=== PATIENT | male | born 1945 | race Caucasian/White ===

== ENCOUNTER 2020-08-03 17:34 | Inpatient (IN) ==
--- NOTE | 2020-08-03 18:14 | ERNOTE ---
Medical Problem HPI - Narrative Date of Service: 08/03/20 - General Chief Complaint: General Assessment Time Seen by Provider: 08/03/20 17:39 Source: patient Exam Limitations: no limitations - Immun/Allergies/Home Medications Immunizations: IMMUNIZATION HX Immunizations Up to Date Yes History of Influenza Vaccine More Information Required Hx Pneumococcal Vaccination More Information Required Allergies/Adverse Reactions: Allergies No Known Allergies Allergy (Verified 08/03/20 17:35) Home Medications: HOME MEDICATIONS aspirin 325 mg tablet 325 mg PO DAILY 11/19/17 [Last Taken Unknown] losartan 25 mg tablet 12.5 mg PO DAILY #45 tab 08/11/19 [Last Taken Unknown] atorvastatin 40 mg tablet 40 mg PO DAILY 11/30/19 [Last Taken Unknown] carvedilol 6.25 mg tablet 12.5 mg PO BID tab 11/30/19 [Last Taken Unknown] insulin glargine 100 unit/mL (3 mL) subcutaneous pen 18 unit SUB-Q DAILY #15 ml 05/01/20 [Last Taken Unknown] ropinirole 2 mg tablet See Rx Instructions PO HS #360 tab 05/01/20 [Last Taken Unknown] torsemide 100 mg tablet 200 mg PO BID tab 07/09/20 [Last Taken Unknown] dapagliflozin 10 mg tablet 10 mg PO DAILY #90 tab 07/23/20 [Last Taken Unknown] metolazone 2.5 mg tablet 5 mg PO Q OTHER DAY #0.1 tab 07/23/20 [Last Taken Unknown] varenicline 0.5 mg (11)-1 mg (42) tablets in a dose pack See Rx Instructions PO PER PKG DIR #53 tab 07/23/20 [Last Taken Unknown] varenicline 1 mg tablet 1 mg PO BID #56 tab 07/23/20 [Last Taken Unknown] pen needle, diabetic 31 gauge x /16" See Rx Instructions .ROUTE .COMPLEX #300 ea 07/27/20 [Last Taken Unknown] warfarin 5 mg tablet 5 mg PO DAILY #30 tab 07/30/20 [Last Taken Unknown] potassium chloride 10 mEq tablet,extended release(part/cryst) 20 meq PO TID #0.1 tab 07/31/20 [Last Taken Unknown] Spironolactone [Aldactone] 25 mg PO DAILY 08/03/20 [Last Taken Unknown] - History of Present History Narrative: This patient is a 75-year-old gentleman who is here complaining of shortness of breath. He has been short of breath for 8 or 9 months. He said that he got pretty swollen in the past. He has been seeing Dr. Osborne and has been put on diuretics. The swelling is improved. He reports that he has been worse the past couple weeks. His symptoms have been persistent. He has not had a fever. He has a cough. He is a smoker. He denies chest pain. He has had his aortic valve replaced. That was at [facility] about 3 years ago. He also had a defibrillator implanted at that time. He indicates his had a heart attack but has not had stents or bypass. Our records indicate dilated cardiomyopathy and pulmonary hypertension. His would like him admitted to the hospital. Review of Systems - Review of Systems Constitutional: Absent: fever EYE: Absent: vision changes ENT: Absent: ear pain, nose congestion, nasal drainage, sore throat Respiratory: Present: shortness of breath, cough Cardiology: Present: syncope - He had a fall on Thursday. He may have just lost his balance.. Absent: chest pain, palpitations Gastrointestinal/Abdominal: Absent: nausea, vomiting, diarrhea, constipation, abdominal pain Genitourinary: Absent: frequency, pain, dysuria Musculoskeletal: Present: no symptoms reported Skin: Present: no symptoms reported Neurological: Present: dizziness/light-headedness - See syncope entry above.. Absent: headache Endocrine: Present: other - He is diabetic. Hematologic/Lymphatic: Present: other - He is on warfarin. Psych: Present: no symptoms reported Medical History (Last Reviewed 08/03/20 @ 18:11 by Dameon Medrano MD) Tobacco abuse (Chronic) Onset Date: ~07/17/16 Pacemaker (Chronic) Onset Date: ~05/26/15 Heart murmur (Chronic) Onset Date: ~10/23/17 Dilated cardiomyopathy (Chronic) Onset Date: Unknown COPD (chronic obstructive pulmonary disease) (Chronic) Onset Date: ~10/23/17 Aortic stenosis (Chronic) Onset Date: Unknown Surgical History: Surgical History (Last Reviewed 08/03/20 @ 18:11 by Dameon Medrano MD) ICD (implantable cardioverter-defibrillator) in place (Chronic) Onset Date: ~05/2015 Family History: Family History (Last Reviewed 08/03/20 @ 18:11 by Dameon Medrano MD) Father H/O heart bypass surgery Heart disease Diabetes Mother Cancer Social History: (Last Reviewed 08/03/20 @ 18:11 by Dameon Medrano MD) Social History: fpc: No Marital status: lives independently: Yes household members: spouse Highest level of school completed/degree received: high school graduate Service: Yes Tobacco: Smoking Status: Current every day smoker tobacco type: cigarettes Smoking cigarettes per day: 20.0 Smoking packs per day: 1 Alcohol: alcohol intake: current Alcohol type: beer alcohol intake frequency: 3 or more drinks per day details: 5-6 drinks at a time Substance Use: substance use type: does not use Dietary Habits: caffeine: Yes Physical Exam - Physical Exam General Appearance: Present: wd/wn, alert, no apparent distress Head Exam: Present: normal inspection, no evidence of injury Eye Exam: Normal inspection: bilateral Ears, Nose, Throat: Present: normal ENT inspection Neck: Present: normal inspection, supple. Absent: lymphadenopathy (R), lymphadenopathy (L) Respiratory: Present: no respiratory distress, no accessory muscle use, other - No breath sounds noted on the left side. Cardiovascular/Chest: Present: no murmur, irregularly irregular Gastrointestinal/Abdominal: Present: normal bowel sounds, nontender, nondistended, soft, no organomegaly Back Exam: Present: normal inspection Extremity Exam: Present: other - His skin is ready. There is trace of edema on the left. Neurological Exam: Present: alert, oriented, normal mood/affect Skin Exam: Present: normal color, warm/dry Progress - Vital Signs Patient's Vital Signs:: I have reviewed the patient's vital signs. Vital Signs: Vital Signs 08/03/20 17:34 Temperature 35.6 C L Pulse Rate 84 Respiratory Rate 16 Blood Pressure 92/74 O2 Sat by Pulse Oximetry 94 - EKG EKG #1 EKG read: Interp. by me EKG Comments: 18: 17 Atrial fibrillation with RVR Rate [address]/T wave changes in the I and aVL. No old EKG available for comparison. - Progress/Reassessment Chief Complaint: General Assessment Departure Clinical Impression: Renal failure, CHF (congestive heart failure), Atrial fibrillation, Hyperkalemia - Departure Disposition: Still a patient Condition: Fair Referrals: Jayy Campos MD [Primary Care Provider] -
[2020-08-03 18:17] LABS: Hemoglobin 16.3 gm/dL (13.5-18.0); Mean Cell Volume 99.4 fl (78-100); Mean Corpuscular Hemoglobin 32.4 pg (27-31); Mean Corpuscular Hgb Conc 32.6 g/dl (32-36); Mean Platelet Volume 9.5 fl (8-11.3); Neutrophil # 5.7 K/mm3 (1.3-6.0); Neutrophil % 79.6 % (42-75.0); Platelet Count 132 K/mm3 (150-450); Red Blood Count 5.03 M/mm3 (4.7-6.0); Red Cell Distribution Width 13.1 % (11.5-14.0); White Blood Count 7.1 K/mm3 (4.0-10.5)
[2020-08-03 18:26] LABS: Prothrombin Time (Patient) 15.6 Seconds (9.1-10.7)
[2020-08-03 18:28] LABS: INR 1.53 INR (0.92-1.08)
[2020-08-03 18:38] LABS: Albumin * 3.4 gm/dl (3.4-5.0); Anion Gap 12.5 mmol/L (6.8-13.8); BUN/Creatinine Ratio 53.2 (9.0-21.6); Bilirubin, Total 0.8 mg/dL (0.0-1.1); Calcium * 8.8 mg/dL (7.9-10.9); Carbon Dioxide 30.6 mmol/L (24-32.6); Potassium 5.1 mmol/L (3.4-4.6); Total Protein 6.7 gm/dL (6.2-8.2)
[2020-08-03 18:41] LABS: Troponin I 0.049 ng/mL (0.00-0.10)
[2020-08-03] MEDS ORDERED: NORMAL SALINE 1,000 ML IV ONE (19:23)
[2020-08-03] MEDS ORDERED: NORMAL SALINE 1,000 ML IV PRN (19:54)
[2020-08-03] MEDS ORDERED: NON-FORMULARY 1 DOSE DOSE PO SCH (20:00)
[2020-08-03] MEDS ORDERED: CARVEDILOL 25 MG TABLET PO SCH (20:45)
[2020-08-03] MEDS ORDERED: NORMAL SALINE 500 ML IV ONE (21:39)
[2020-08-03] MEDS ORDERED: ACETAMINOPHEN 500 MG TABLET PO PRN (22:27)
[2020-08-03] MEDS ORDERED: INSULIN GLARGINE,HUM.REC.ANLOG 100 UNITS/ML VIAL SC ONE (23:26)
[2020-08-03] MEDS: INSULIN GLARGINE,HUM.REC.ANLOG 100 UNITS/ML VIAL SC SCH (23:29)
[2020-08-03] MEDS: rOPINIRole HCL 1 MG TABLET PO SCH (23:33)
[2020-08-04] MEDS: rOPINIRole HCL 1 MG TABLET PO SCH ×3 (08:02→20:16)
[2020-08-04] MEDS: ASPIRIN 325 MG TABLET.DR PO SCH (08:02)
[2020-08-04] MEDS: ROSUVASTATIN CALCIUM 20 MG TABLET PO SCH (08:02)
[2020-08-04] MEDS: CARVEDILOL 12.5 MG TABLET PO SCH ×2 (08:02→20:16)
[2020-08-04] MEDS: PANTOPRAZOLE SODIUM 20 MG TABLET.DR PO SCH ×2 (08:02→20:16)
[2020-08-04] MEDS: INSULIN GLARGINE,HUM.REC.ANLOG 100 UNITS/ML VIAL SC SCH (08:03)
[2020-08-04] MEDS: WARFARIN SODIUM 5 MG TABLET PO SCH (08:03)
[2020-08-04] MEDS: Dapagliflozin Propanediol [Farxiga] 10 mg tablet PO SCH (08:03)
--- NOTE | 2020-08-04 10:49 | HP ---
Chief Complaint - Chief Complaint Date of Service: 08/04/20 Time of Service: 10:07 Chief Complaint: I have Shortness of breath and weakness for several weeks. 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 However the patient is critically ill with a diagnosis of decompensated CHF, CLAUS on CKD, and refractory hypotension. The patient reports a long cardiac history that started with an VA in 2004 which led to progressive CHF. He had a defibrillator installed several years later after being diagnosed with atrial fibrillation. The patient has dilated cardiomyopathy which most likely contributes to his CHF. He also has a long history of CKD and shows a significant worsening in renal function most likely due to his weakened heart. He tells me that he has been struggling with progressive dyspnea with minimal exertion which has made daily life difficult, in an effort to improve this he has been treated with daily oral diuretics however his condition did not get better. The patient reports growing weaker and weaker which has kept him from carrying out activities of daily living, so his became concerned and had him escorted to the ER. Once in the ER the patient was discovered to have a BNP above 18,000 which is a significant worsening for him compared to his previous. He was also found to have a profound decrease in his renal function and elevated liver enzymes indicating early onset liver injury. He has also been hypotensive since arriving to the hospital and has been treated with small boluses of IV fluid transfuse at a very slow rate, so far he has tolerated the treatment well but as a precaution I am stopping all IV fluids. He has also been placed on a fluid restricted diet to avoid overload. At the moment he remains hypotensive but maintains a MAP well over 65, so we will just keep him on telemetry and monitor him closely. At bedside this morning we discussed his CODE STATUS and he informed me that he is full code. Medical History (Last Reviewed 08/03/20 @ 18:24 by Tracy Bell RN) Tobacco abuse (Chronic) Onset Date: ~07/17/16 Pacemaker (Chronic) Onset Date: ~05/26/15 Heart murmur (Chronic) Onset Date: ~10/23/17 Dilated cardiomyopathy (Chronic) Onset Date: Unknown COPD (chronic obstructive pulmonary disease) (Chronic) Onset Date: ~10/23/17 Aortic stenosis (Chronic) Onset Date: Unknown Surgical History: Surgical History (Last Reviewed 08/03/20 @ 18:24 by rTacy Bell RN) ICD (implantable cardioverter-defibrillator) in place (Chronic) Onset Date: ~05/2015 Family History: Family History (Last Reviewed 08/03/20 @ 18:24 by Tracy Bell RN) Father Diabetes Heart disease H/O heart bypass surgery Mother Cancer Social History: (Last Reviewed 08/03/20 @ 18:24 by Tracy Bell RN) Social History: intermediate: No Marital status: lives independently: Yes household members: spouse Highest level of school completed/degree received: high school graduate Service: Yes Tobacco: Smoking Status: Current every day smoker tobacco type: cigarettes Smoking cigarettes per day: 20.0 Smoking packs per day: 1 Alcohol: alcohol intake: current Alcohol type: beer alcohol intake frequency: 3 or more drinks per day details: 5-6 drinks at a time Substance Use: substance use type: does not use Dietary Habits: caffeine: Yes Peds Patient Hx - Developmental: No Pertinent Hx Peds Patient Hx - Medical: No Pertinent Hx Peds Patient Hx - Cardiac/Respiratory: No Pertinent Hx Peds Patient Hx - Surgical: No Surgical History Patient History - Cancer: No Hx of Cancer Review Of Systems (GEN) - Review of Systems Generalized/Overall Review: Present: Weakness, Fatigue EENTM: Present: No Symptoms Reported Respiratory: Present: Shortness of Breath Cardiac: Present: No Symptoms Reported Abdominal: Present: No Symptoms Reported Genitourinary: Present: No Symptoms Reported Musculoskeletal: Present: No Symptoms Reported Neurological: Present: No Symptoms Reported Skin: Present: No Symptoms Reported Endocrine: Present: No Symptoms Reported Immunizations: IMMUNIZATION HX Immunizations Up to Date Yes History of Influenza Vaccine More Information Required Hx Pneumococcal Vaccination More Information Required Allergies/Adverse Reactions: Allergies Allergy/AdvReac Type Severity Reaction Status Date / Time No Known Allergies Allergy Verified 08/03/20 17:35 Home Medications: HOME MEDICATIONS aspirin 325 mg tablet 325 mg PO DAILY 11/19/17 [Last Taken Unknown] losartan 25 mg tablet 12.5 mg PO DAILY #45 tab 08/11/19 [Last Taken Unknown] atorvastatin 40 mg tablet 40 mg PO DAILY 11/30/19 [Last Taken Unknown] carvedilol 6.25 mg tablet 12.5 mg PO BID tab 11/30/19 [Last Taken Unknown] insulin glargine 100 unit/mL (3 mL) subcutaneous pen 18 unit SUB-Q DAILY #15 ml 05/01/20 [Last Taken Unknown] ropinirole 2 mg tablet See Rx Instructions PO HS #360 tab 05/01/20 [Last Taken Unknown] torsemide 100 mg tablet 200 mg PO BID tab 07/09/20 [Last Taken Unknown] dapagliflozin 10 mg tablet 10 mg PO DAILY #90 tab 07/23/20 [Last Taken Unknown] metolazone 2.5 mg tablet 5 mg PO Q OTHER DAY #0.1 tab 07/23/20 [Last Taken Unknown] varenicline 0.5 mg (11)-1 mg (42) tablets in a dose pack See Rx Instructions PO PER PKG DIR #53 tab 07/23/20 [Last Taken Unknown] varenicline 1 mg tablet 1 mg PO BID #56 tab 07/23/20 [Last Taken Unknown] pen needle, diabetic 31 gauge x 5/16" See Rx Instructions .ROUTE .COMPLEX #300 ea 07/27/20 [Last Taken Unknown] warfarin 5 mg tablet 5 mg PO DAILY #30 tab 07/30/20 [Last Taken Unknown] potassium chloride 10 mEq tablet,extended release(part/cryst) 20 meq PO TID #0.1 tab 07/31/20 [Last Taken Unknown] Spironolactone [Aldactone] 25 mg PO DAILY 08/03/20 [Last Taken Unknown] Exam - Exam Vital Signs: Vital Signs - Last Taken Temp 36.1 C 08/04/20 06:43 Pulse 114 H 08/04/20 08:02 Resp 14 08/04/20 06:43 BP 94/62 08/04/20 08:16 Pulse Ox 94 08/04/20 06:43 Constitutional: Present: Alert, Oriented x3, Cooperative, Well developed, Well nourished, No distress, Elderly ENT Exam: Present: normal ENT inspection, hearing grossly normal Eye Exam: bilateral eye: normal inspection, PERRL, EOMI Neck: Present: non-tender, full range of motion, supple, normal inspection, trachea midline Back Exam: Present: normal inspection, no CVA tenderness, no vertebral tenderness Breasts: Present: Exam deferred, Nontender Respiratory: Present: no respiratory distress, no accessory muscle use, decreased breath sounds, crackles - Bibasilar crackles Cardiovascular/Chest: Present: normal peripheral pulses, regular rate, rhythm, no chest tenderness, no edema, no gallop, no JVD, no murmur, no rub Peripheral Pulses: dorsalis-pedis (R): 2+, dorsalis-pedis (L): 2+ Abdomen: Present: Normal bowel sounds, soft, nontender, nondistended, no rebound tenderness, no masses, obese /Rectal: Present: Exam deferred Extremity: Present: normal range of motion, non-tender, normal inspection, no pedal edema, no calf tenderness, pelvis stable Skin Exam: Present: warm/dry, other - Brawny skin discoloration of lower extremities bilaterally Lymphatic: Present: no adenopathy Neurologic: Present: time study clerk II-XII nml as tested, no motor/sensory deficits, alert, normal mood/affect, oriented x 3 Appearance: Present: appropriate appearance, appropriate insight, neat, no memory impairment Eye contact: Present: cooperative, good eye contact, normal speech Thoughts: Present: normal thought pattern, no apparent hallucination Diagnostic Studies: Abnormal Lab Results 08/03/20 08/03/20 08/03/20 Range/Units 18:10 18:10 18:10 MCH 32.4 H (27-31) pg Plt Count 132 L (150-450) K/mm3 Neutrophils % 79.6 H (42-75.0) % Lymphocytes % 11.7 L (20-51) % Lymphocytes # 0.83 L (1.5-3.5) k/mm3 PT 15.6 H (9.1-10.7) Seconds INR (Anticoag Therapy) 1.53 H (0.92-1.08) INR Potassium 5.1 H (3.4-4.6) mmol/L BUN 109 H (6-23) mg/dL Creatinine 2.05 H (0.4-1.4) mg/dL Est GFR (Non-Af Amer) 34 L (60-130) mL/min BUN/Creatinine Ratio 53.2 H (9.0-21.6) Random Glucose 179 H (70-110) mg/dL AST 91 H (0-48) U/L ALT 138 H (19-67) U/L Alkaline Phosphatase 175 H (50-170) U/L B-Natriuretic Peptide 30603 H (5-350) pg/mL Laboratory Results WBC 7.1 K/mm3 (4.0-10.5) 08/03/20 18:10 RBC 5.03 M/mm3 (4.7-6.0) 08/03/20 18:10 Hgb 16.3 gm/dL (13.5-18.0) 08/03/20 18:10 Hct 50.0 % (42.0-52.0) 08/03/20 18:10 MCV 99.4 fl (78-100) 08/03/20 18:10 MCH 32.4 pg (27-31) H 08/03/20 18:10 MCHC 32.6 g/dl (32-36) 08/03/20 18:10 RDW 13.1 % (11.5-14.0) 08/03/20 18:10 Plt Count 132 K/mm3 (150-450) L 08/03/20 18:10 MPV 9.5 fl (8-11.3) 08/03/20 18:10 Immature Gran % (Auto) 0.10 % (0.001-0.429) 08/03/20 18:10 Immature Gran # (Auto) 0.01 K/mm3 (0.000-0.0310) 08/03/20 18:10 Neutrophils % 79.6 % (42-75.0) H 08/03/20 18:10 Lymphocytes % 11.7 % (20-51) L 08/03/20 18:10 Monocytes % 7.2 % (0.0-9) 08/03/20 18:10 Eosinophils % 0.6 % (0.0-3.0) 08/03/20 18:10 Basophils % 0.8 % (0.0-1.0) 08/03/20 18:10 Nucleated RBC % 0.0 k/mm3 (0-1) 08/03/20 18:10 Neutrophils # 5.7 K/mm3 (1.3-6.0) 08/03/20 18:10 Lymphocytes # 0.83 k/mm3 (1.5-3.5) L 08/03/20 18:10 Monocytes # 0.5 k/mm3 (0.0-1.0) 08/03/20 18:10 Eosinophils # 0.0 k/mm3 (0.0-0.7) 08/03/20 18:10 Absolute Basophils 0.1 k/mm3 (0.0-0.1) 08/03/20 18:10 PT 15.6 Seconds (9.1-10.7) H 08/03/20 18:10 INR (Anticoag Therapy) 1.53 INR (0.92-1.08) H 08/03/20 18:10 Sodium 139 mmol/L (132-142) 08/03/20 18:10 Plasma Sodium 140 mmol/L (130-142) 08/03/20 18:10 Potassium 5.1 mmol/L (3.4-4.6) H 08/03/20 18:10 Chloride 101 mmol/L (97-106) 08/03/20 18:10 Carbon Dioxide 30.6 mmol/L (24-32.6) 08/03/20 18:10 Anion Gap 12.5 mmol/L (6.8-13.8) 08/03/20 18:10 BUN 109 mg/dL (6-23) H 08/03/20 18:10 Creatinine 2.05 mg/dL (0.4-1.4) H 08/03/20 18:10 Est GFR (Non-Af Amer) 34 mL/min (60-130) L 08/03/20 18:10 BUN/Creatinine Ratio 53.2 (9.0-21.6) H 08/03/20 18:10 Random Glucose 179 mg/dL (70-110) H 08/03/20 18:10 Calcium 8.8 mg/dL (7.9-10.9) 08/03/20 18:10 Calcium Adj for Albumin 9.0 mg/dL (8.4-10.2) 08/03/20 18:10 Total Bilirubin 0.8 mg/dL (0.0-1.1) 08/03/20 18:10 AST 91 U/L (0-48) H 08/03/20 18:10 ALT 138 U/L (19-67) H 08/03/20 18:10 Alkaline Phosphatase 175 U/L (50-170) H 08/03/20 18:10 Troponin I 0.049 ng/mL (0.00-0.10) 08/03/20 18:10 B-Natriuretic Peptide 37153 pg/mL (5-350) H 08/03/20 18:10 Total Protein 6.7 gm/dL (6.2-8.2) 08/03/20 18:10 Albumin 3.4 gm/dl (3.4-5.0) 08/03/20 18:10 SARS-CoV-2 (PCR) Not detected (NotDetected) 08/03/20 20:03 Assessment/Plan - Narrative Narrative: Patient was evaluated medical chart was reviewed and decision to treat for diagnosis of decompensated CHF, CLAUS superimposed on CKD, cute liver injury, and refractory hypotension was made. Patient is in stable condition at the moment but critically ill given his current condition. We will keep him on telemetry monitoring to watch vitals as well as his atrial fibrillation. At the moment he denies any pain or shortness of breath and is in agreement with the treatment plan. Everything was explained in detail to himself and his and they expressed full understanding during the conversation. CMP has been ordered for reevaluation of patient's renal function and liver enzymes as well as other electrolytes given the finding of mild hyperkalemia when he arrived to the hospital. We will follow-up the results and treat him accordingly. - Assessment/Plan (1) Hypotension Problem: Acute Qualifiers: Hypotension type: hypotension due to drug Qualified Code(s): I95.2 - Hypotension due to drugs (2) Atrial fibrillation Problem: Chronic (3) Hyperkalemia Problem: Acute (4) Systolic congestive heart failure Problem: Chronic Qualifiers: (5) RLS (restless legs syndrome) Problem: Chronic (6) S/P TAVR (transcatheter aortic valve replacement) Problem: Chronic (7) Type 2 diabetes mellitus Problem: Chronic (8) Tobacco abuse Problem: Chronic (9) ICD (implantable cardioverter-defibrillator) in place Problem: Chronic (10) Dilated cardiomyopathy Problem: Chronic (11) COPD (chronic obstructive pulmonary disease) Problem: Chronic Qualifiers: (12) CAD (coronary artery disease) Problem: Chronic Qualifiers: (13) Hyperlipidemia Problem: Chronic Qualifiers: (14) Acute kidney injury superimposed on CKD Problem: Acute (15) Acute disorder of liver Problem: Acute (16) Dyspnea on minimal exertion Problem: Chronic
[2020-08-04 11:13] LABS: Albumin * 3.3 gm/dl (3.4-5.0); Anion Gap 10.2 mmol/L (6.8-13.8); BUN/Creatinine Ratio 50.8 (9.0-21.6); Bilirubin, Total 0.5 mg/dL (0.0-1.1); Ca. Corrected For Albumin 8.7 mg/dL (8.4-10.2); Calcium * 8.5 mg/dL (7.9-10.9); Carbon Dioxide 31.5 mmol/L (24-32.6); Potassium 4.7 mmol/L (3.4-4.6); Total Protein 6.5 gm/dL (6.2-8.2)
[2020-08-05] MEDS: PANTOPRAZOLE SODIUM 20 MG TABLET.DR PO SCH (07:57)
[2020-08-05] MEDS: WARFARIN SODIUM 5 MG TABLET PO SCH (08:00)
[2020-08-05] MEDS: ROSUVASTATIN CALCIUM 20 MG TABLET PO SCH (08:00)
[2020-08-05] MEDS: rOPINIRole HCL 1 MG TABLET PO SCH (08:00)
[2020-08-05] MEDS: ASPIRIN 325 MG TABLET.DR PO SCH (08:01)
[2020-08-05] MEDS: INSULIN GLARGINE,HUM.REC.ANLOG 100 UNITS/ML VIAL SC SCH (08:01)
[2020-08-05] MEDS: Dapagliflozin Propanediol [Farxiga] 10 mg tablet PO SCH (08:01)
[2020-08-05] MEDS: CARVEDILOL 12.5 MG TABLET PO SCH ×2 (08:03→12:08)
--- NOTE | 2020-08-05 11:58 | DS ---
(1) Hypotension Problem: Acute Qualifiers: Hypotension type: hypotension due to drug Qualified Code(s): I95.2 - Hypotension due to drugs (2) Atrial fibrillation Problem: Chronic (3) Hyperkalemia Problem: Resolved (4) Systolic congestive heart failure Problem: Chronic Qualifiers: (5) RLS (restless legs syndrome) Problem: Chronic (6) S/P TAVR (transcatheter aortic valve replacement) Problem: Chronic (7) Type 2 diabetes mellitus Problem: Chronic (8) Tobacco abuse Problem: Chronic (9) ICD (implantable cardioverter-defibrillator) in place Problem: Chronic (10) Dilated cardiomyopathy Problem: Chronic (11) COPD (chronic obstructive pulmonary disease) Problem: Chronic Qualifiers: (12) CAD (coronary artery disease) Problem: Chronic Qualifiers: (13) Hyperlipidemia Problem: Chronic Qualifiers: (14) Acute kidney injury superimposed on CKD Problem: Acute (15) Acute disorder of liver Problem: Acute (16) Dyspnea on minimal exertion Problem: Chronic Date of Discharge:: 08/05/20 Hospital Course: 75-year-old male admitted for decompensated CHF, refractory hypotension, CLAUS on CKD, and generalized weakness was evaluated bedside this m orning was found to be afebrile and in no acute distress. Patient has shown significant clinical improvement since arriving at [facility], he has responded favorably to treatment. He reports complete resolution of his shortness of breath and says he feels stronger. Labs reveal improvement in his renal function and his liver enzymes are on a downward trend. Patient's blood pressure has improved but he is still hypotensive, therefore we will continue to hold his in hypertensive including the carvedilol. The patient scheduled to see his PCP tomorrow morning and he was instructed to discuss restarting his meds with orders from his doctor once his blood pressure improves. He is tachycardic at the moment but I suspect this is due to not being administered his beta- torey, however given his hypotension we will continue holding this and let his PCP restart it after evaluating the patient in the clinic. The patient wants to go home, and I am in agreement that he is well enough to go so he is being discharged home with instructions to follow-up with his doctor. He was reminded to continue following a fluid restriction diet to avoid fluid overload. Procedures Performed: none Results and Findings: Lab Pending Results 08/03/20 18:10: WBC 7.1, RBC 5.03, Hgb 16.3, Hct 50.0, MCV 99.4, MCH 32.4 H, MCHC 32.6, RDW 13.1, Plt Count 132 L, MPV 9.5, Immature Gran % (Auto) 0.10, Immature Gran # (Auto) 0.01, Neutrophils % 79.6 H, Lymphocytes % 11.7 L, Monocytes % 7.2, Eosinophils % 0.6, Basophils % 0.8, Nucleated RBC % 0.0, Neutrophils # 5.7, Lymphocytes # 0.83 L, Monocytes # 0.5, Eosinophils # 0.0, Absolute Basophils 0.1 08/03/20 18:10: PT 15.6 H, INR (Anticoag Therapy) 1.53 H 08/03/20 18:10: Sodium 139, Plasma Sodium 140, Potassium 5.1 H, Chloride 101, Carbon Dioxide 30.6, Anion Gap 12.5, BUN 109 H, Creatinine 2.05 H, Est GFR (Non- Af Amer) 34 L, BUN/Creatinine Ratio 53.2 H, Random Glucose 179 H, Calcium 8.8, Calcium Adj for Albumin 9.0, Total Bilirubin 0.8, AST 91 H, ALT 138 H, Alkaline Phosphatase 175 H, Troponin I 0.049, B-Natriuretic Peptide 97246 H, Total Protein 6.7, Albumin 3.4 08/03/20 20:03: SARS-CoV-2 (PCR) Not detected 08/04/20 10:55: Sodium 136, Plasma Sodium 137, Potassium 4.7 H, Chloride 99, Carbon Dioxide 31.5, Anion Gap 10.2, BUN 98 H, Creatinine 1.93 H, Est GFR (Non- Af Amer) 36 L, BUN/Creatinine Ratio 50.8 H, Random Glucose 172 H, Calcium 8.5, Calcium Adj for Albumin 8.7, Total Bilirubin 0.5, AST 63 H, ALT 132 H, Alkaline Phosphatase 167, Total Protein 6.5, Albumin 3.3 L Discharge Location: Home Disposition: Home self-care Condition: Stable Face to Face Encounter completed per CMS Guidelines: No Discharge Activity: Activity as tolerated Discharge Diet: Low salt, Other - Fluid restricted diet of 1 to 1-1/2 L a day. Referrals: Jayy Campos MD [Primary Care Provider] - Complete Home Medications List: Complete Home Medication List: aspirin 325 mg tablet 325 mg PO DAILY 11/19/17 losartan 25 mg tablet 12.5 mg PO DAILY #45 tab 08/11/19 atorvastatin 40 mg tablet 40 mg PO DAILY 11/30/19 carvedilol 6.25 mg tablet 12.5 mg PO BID tab 11/30/19 insulin glargine 100 unit/mL (3 mL) subcutaneous pen 18 unit SUB-Q DAILY #15 ml 05/01/20 ropinirole 2 mg tablet See Rx Instructions PO HS #360 tab 05/01/20 torsemide 100 mg tablet 200 mg PO BID tab 07/09/20 dapagliflozin 10 mg tablet 10 mg PO DAILY #90 tab 07/23/20 metolazone 2.5 mg tablet 5 mg PO Q OTHER DAY #0.1 tab 07/23/20 varenicline 0.5 mg (11)-1 mg (42) tablets in a dose pack See Rx Instructions PO PER PKG DIR #53 tab 07/23/20 varenicline 1 mg tablet 1 mg PO BID #56 tab 07/23/20 pen needle, diabetic 31 gauge x 09/23" See Rx Instructions .ROUTE .COMPLEX #300 ea 07/27/20 warfarin 5 mg tablet 5 mg PO DAILY #30 tab 07/30/20 potassium chloride 10 mEq tablet,extended release(part/cryst) 20 meq PO TID #0.1 tab 07/31/20 Spironolactone [Aldactone] 25 mg PO DAILY 08/03/20 Forms: Patient Portal Registration
[2020-08-05 14:14] VITALS: BP 92/60
== END 2020-08-05 15:30 | disposition home or self-care (01) | DRG 291 ==
LOC: MS 17:34 → ER 17:34 → MS 22:00
PROVIDERS: ADMIT Family Medicine; ATTEND Allergy & Immunology
DX: S36.119A Unspecified injury of liver, initial encounter; E11.22 Type 2 diabetes mellitus with diabetic chronic kidney disease; I48.20 Chronic atrial fibrillation, unspecified; I42.0 Dilated cardiomyopathy; G25.81 Restless legs syndrome; R00.0 Tachycardia, unspecified; Z72.0 Tobacco use; E87.5 Hyperkalemia; N18.30 Chronic kidney disease, stage 3 unspecified; N17.9 Acute kidney failure, unspecified; I25.10 Atherosclerotic heart disease of native coronary artery without angina pectoris; I50.23 Acute on chronic systolic (congestive) heart failure; T46.5X5A Adverse effect of other antihypertensive drugs, initial encounter; I13.0 Hypertensive heart and chronic kidney disease with heart failure and stage 1 through stage 4 chronic kidney disease, or unspecified chronic kidney disease; I95.2 Hypotension due to drugs; E11.8 Type 2 diabetes mellitus with unspecified complications; J44.9 Chronic obstructive pulmonary disease, unspecified

== ENCOUNTER 2020-10-18 18:51 | Inpatient (IN) ==
[2020-10-18] MEDS ORDERED: NALOXONE HCL 1 MG/1 ML SYRG ONE (18:53)
--- NOTE | 2020-10-18 19:03 | ERNOTE ---
Neuro HPI ER Record Date of Service: 10/18/20 Presenting Symptoms: other - AMS Time Seen by Provider: 10/18/20 18:57 Source: RN/MD, EMS, senior living records Exam Limitations: clinical condition Immunizations: IMMUNIZATION HX Immunizations Up to Date Yes History of Influenza Vaccine Yes Hx Pneumococcal Vaccination Yes Allergies/Adverse Reactions: Allergies Allergy/AdvReac Type Severity Reaction Status Date / Time No Known Allergies Allergy Verified 09/06/20 13:45 Home Medications: HOME MEDICATIONS ropinirole 2 mg tablet See Rx Instructions PO HS #360 tab 05/01/20 [Last Taken Unknown] pen needle, diabetic 31 gauge x 09/23" See Rx Instructions .ROUTE .COMPLEX #300 ea 07/27/20 [Last Taken Unknown] amiodarone 200 mg tablet 200 mg PO DAILY #30 tab 08/06/20 [Last Taken Unknown] aspirin 81 mg chewable tablet 81 mg PO DAILY #0.1 tab 08/28/20 [Last Taken Unknown] metoprolol succinate 25 mg tablet,extended release 24 hr 25 mg PO DAILY #90 tab 09/06/20 [Last Taken Unknown] Acetaminophen [Tylenol] 650 mg PO Q4H PRN 10/16/20 [Last Taken Unknown] Albuterol Sulfate [Albuterol Sulfate Hfa] 2 - 4 puff IH Q6H PRN 10/16/20 [Last Taken Unknown] Apixaban [Eliquis] 5 mg PO BID 10/16/20 [Last Taken Unknown] Bacitracin Zinc [Bacitracin] 1 appl TP BID 10/16/20 [Last Taken Unknown] Baclofen 10 mg PO BID PRN 10/16/20 [Last Taken Unknown] Bisacodyl [Dulcolax] 10 mg PO DAILY PRN 10/16/20 [Last Taken Unknown] Dapagliflozin Propanediol [Farxiga] 10 mg PO DAILY 10/16/20 [Last Taken Unknown] Docusate Sodium 100 mg PO BID 10/16/20 [Last Taken Unknown] Insulin Aspart [Novolog] 10 units SC TIDWM 10/16/20 [Last Taken Unknown] Insulin Glargine,Hum.rec.anlog [Lantus] 16 units SC HS 10/16/20 [Last Taken Unknown] Lidocaine [Lidoderm 5%] 1 patch TP DAILY 10/16/20 [Last Taken Unknown] Magnesium Hydroxide [Milk Of Magnesia] 30 ml PO DAILY PRN 10/16/20 [Last Taken Unknown] Melatonin 3 mg PO HS 10/16/20 [Last Taken Unknown] Morphine Sulfate 7.5 mg PO Q4H PRN 10/16/20 [Last Taken Unknown] Tamsulosin HCl 0.4 mg PO DAILY 10/16/20 [Last Taken Unknown] - History of Present Illness Narrative: The patient is a 75 year old male who presents for via [facility] for altered mental status which was noted 1 hour [employer]. There are no associated symptoms. The patient is responsive to painful stimuli but only moans. There are no alleviating factors. There are no aggravating f actors. Previous treatments have included: none. The past medical history includes: aortic stenosis, COPD, cardiomyopathy, AFib, pacemaker, CKD and CAD. The social history is positive for former tobacco use. The patient has had no known ill contacts. Patient arrives via EMS with report from [facility] of decreased responsiveness last seen normal 1 hour ago. Patient upon arrival has gag reflex intact but does not localize to pain. Patient only response is moaning. Narcan given IV due to review of medication list showing pain medication post surgery, patient having increased responsiveness answering "no" to pain and "no" to needing a blanket. Repeat dose given to improve cognition. Patient was transferred to [facility] where he underwent thoracic spinal fusion and was then discharged to [facility] for strengthening. states that he had a similar episode of altered mentation due to pain medication administration. states she also has concern for altered blood sugar level due to administration of insulin and pain medication then patient is to drowsy to eat and blood sugar drops. states they previously decreased his Morphine dose due to intolerance and altered mentation. Review of Systems - Narrative Narrative: ROS obtained from spouse. Inability to obtain from patient due to condition. - Review of Systems Constitutional: Present: recent illness. Absent: fever, chills Respiratory: Present: cough Gastrointestinal/Abdominal: Present: eating less. Absent: vomiting, diarrhea Genitourinary: Present: no symptoms reported. Absent: decreased urinary output Neurological: Present: other - altered mentation Medical History (Last Reviewed 10/18/20 @ 19:55 by GONZÁLEZ Meyer) Tobacco abuse (Chronic) Onset Date: ~07/17/16 very strongly encouraged him to stop smoking. Pacemaker (Chronic) Onset Date: ~05/26/15 Heart murmur (Chronic) Onset Date: ~10/23/17 Dilated cardiomyopathy (Chronic) Onset Date: Unknown COPD (chronic obstructive pulmonary disease) (Chronic) Onset Date: ~10/23/17 Aortic stenosis (Chronic) Onset Date: Unknown Atherosclerotic heart disease of [place] coronary artery without angina pectoris Atrial fibrillation CKD (chronic kidney disease), stage III History of falling Low back pain Moderate protein-calorie malnutrition Surgical History: Surgical History (Last Reviewed 10/18/20 @ 19:55 by GONZÁLEZ Meyer) ICD (implantable cardioverter-defibrillator) in place (Chronic) Onset Date: ~05/2015 Hx of spinal fusion Family History: Family History (Last Reviewed 10/18/20 @ 19:55 by GONZÁLEZ Meyer) Father Diabetes Heart disease H/O heart bypass surgery Mother Cancer Social History: (Last Reviewed 10/18/20 @ 19:55 by GONZÁLEZ Meyer) Social History: senior living: No Marital status: lives independently: Yes household members: spouse Highest level of school completed/degree received: high school graduate Service: Yes Tobacco: Smoking Status: Former smoker tobacco type: cigarettes Smoking cigarettes per day: 20.0 Smoking packs per day: 1 Alcohol: alcohol intake: current Alcohol type: beer alcohol intake frequency: 0-2 drinks per day details: 2 or 3 beers a day. Substance Use: substance use type: does not use Dietary Habits: caffeine: Yes Physical Exam - Physical Exam General Appearance: Present: sleeping/easy to arouse - after administration of Narcan 0.2mg x2 doses Head Exam: Present: normal inspection, no evidence of injury Eye Exam: Normal inspection: bilateral, PERRL: bilateral, EOMI: bilateral Ears, Nose, Throat: Present: normal except -, normal pharynx - normal gag reflex, dry mucous membranes Neck: Present: normal inspection Respiratory: Present: no accessory muscle use, chest nontender, rhonchi, wheezing Cardiovascular/Chest: Present: regular rate, rhythm Peripheral Pulses: N=norm/S=strong/W=weak/B=bound/A=absent: Radial (R): Normal Gastrointestinal/Abdominal: Present: normal bowel sounds, nontender, nondistended, soft, no organomegaly Extremity Exam: Present: extremity edema - trace bilateral lower extremities Neurological Exam: Present: alert - retest after Narcan administration , oriented, normal mood/affect, no motor/sensory deficits, 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 Due to recent surgical history of medications patient given Narcan with increased level of responsiveness. Patient has intact gag reflex upon arrival. states that provider at care center has also been titrating upon his oxygen to keep SpO2 >90%. Patient PC02 74 with BNP 13148, will try Bipap to aid with retention and fluid overload. 10/18/20 21:43 Case was reviewed with , will withhold diuretics at this time due to hypotension. Patient cognition improved, awakens easily with verbal stimuli and is oriented to person, place and time. at bedside. Will repeat ABG at 1 hour interval. 10/18/20 22:03 Repeat ABG's called to , will d/c Bipap. Also reviewed and will withhold diuretics at this time, states will reassess. - Results and Orders Patient's Lab Results:: I have reviewed the patient's lab results. - Vital Signs Patient's Vital Signs:: I have reviewed the patient's vital signs. Vital Signs: Vital Signs 10/18/20 18:56 Temperature 36.8 C Pulse Rate 109 H Respiratory Rate 24 H Blood Pressure 126/77 O2 Sat by Pulse Oximetry 91 L - EKG EKG #1 EKG: NSR, LBBB EKG read: Reviewed by me EKG Comments: No acute ST elevation, no acute ischemic change. - X-Ray X-Ray #1 X-Ray: chest Interpretation: Reviewed by me X-ray Comments: IMPRESSION: CARDIOMEGALY. BILATERAL LUNG INFILTRATES. INTERVAL POSTOPERATIVE CHANGE. Electronically signed by Vladislav Pérez M.D.. - CT/Ultrasound CT/Ultrasound Narrative: Real radiology preliminary report: CT brain without contrast no acute intracranial process. IMPRESSION: STABLE EXAM. NO ACUTE INTRACRANIAL PATHOLOGY IDENTIFIED. Electronically signed by Vladislav Pérez M.D.. - Progress/Reassessment Chief Complaint: Altered Mental Status Progress:: Improved Progress Note-Subjective: 10/18/20 22:12 Patient remains alert and oriented x3. Blood sugar recheck 116. Departure Clinical Impression: Pneumonia Qualifiers: Pneumonia type: due to unspecified organism Laterality: bilateral Lung location: lower lobe of lung Qualified Code(s): J18.9 - Pneumonia, unspecified organism COPD (chronic obstructive pulmonary disease) Qualifiers: COPD type: unspecified COPD Qualified Code(s): J44.9 - Chronic obstructive pulmonary disease, unspecified Altered mental status Qualifiers: Altered mental status type: unspecified Qualified Code(s): R41.82 - Altered mental status, unspecified - Departure Disposition: Still a patient Condition: Good
[2020-10-18 19:17] LABS: Hematocrit 40.8 % (42.0-52.0); Hemoglobin 11.9 gm/dL (13.5-18.0); Mean Corpuscular Hemoglobin 29.2 pg (27-31); Mean Corpuscular Hgb Conc 29.2 g/dl (32-36); Mean Platelet Volume 8.6 fl (8-11.3); Neutrophil # 4.2 K/mm3 (1.3-6.0); Neutrophil % 70.6 % (42-75.0); Platelet Count 239 K/mm3 (150-450); Red Blood Count 4.08 M/mm3 (4.7-6.0)
[2020-10-18 19:22] LABS: Prothrombin Time (Patient) 13.1 Seconds (9.1-10.7)
[2020-10-18 19:24] LABS: INR 1.27 INR (0.92-1.08); Partial Thrombolplastin Time 31.3 Seconds (24-32)
[2020-10-18 19:32] LABS: Albumin * 2.8 gm/dl (3.4-5.0); Anion Gap 7.7 mmol/L (6.8-13.8); BUN/Creatinine Ratio 17.3 (9.0-21.6); Bilirubin, Total 0.7 mg/dL (0.0-1.1); Ca. Corrected For Albumin 9.2 mg/dL (8.4-10.2); Calcium * 8.6 mg/dL (7.9-10.9); Carbon Dioxide 38.2 mmol/L (24-32.6); Potassium 3.9 mmol/L (3.4-4.6); Total Protein 6.9 gm/dL (6.2-8.2); Troponin I 0.024 ng/mL (0.00-0.10)
[2020-10-18 19:34] LABS: Urine Bilirubin Negative (NEGATIVE); Urine Blood 50 /ul (NEGATIVE); Urine Ketone Negative (NEGATIVE); Urine Nitrite Negative (NEGATIVE); Urine Protein Negative (NEGATIVE); Urine Specific Gravity 1.015 SP.GR. (1.005-1.030); Urine Urobilinogen Normal (NORMAL)
[2020-10-18 19:46] LABS: Urine Appearance Clear (CLEAR); Urine Bacteria TRACE; Urine Color Yellow; Urine WBC None Seen /hpf (0-5)
[2020-10-18 19:47] LABS: Urine Hyaline Cast 0-5 /LPF
[2020-10-18] MEDS ORDERED: cefTRIAXone SODIUM 1,000 MG/100 ML BAG IV ONE (21:10)
[2020-10-18] MEDS ORDERED: AZITHROMYCIN 250 MG TABLET PO STA (22:05)
[2020-10-19] MEDS: ACETAMINOPHEN 500 MG TABLET PO PRN ×2 (03:42→10:34)
[2020-10-19] MEDS ORDERED: ACETAMINOPHEN 325 MG TABLET PO PRN (09:19)
[2020-10-19] MEDS ORDERED: BISACODYL 5 MG TABLET.DR PO PRN (09:19)
[2020-10-19] MEDS ORDERED: MAGNESIUM HYDROXIDE 30 ML UDC PO PRN (09:19)
[2020-10-19] MEDS: METOPROLOL SUCCINATE 25 MG TABLET.SA PO SCH (10:28)
[2020-10-19] MEDS: APIXABAN 5 MG TABLET PO SCH ×2 (10:28→20:17)
[2020-10-19] MEDS: DOCUSATE SODIUM 100 MG CAPSULE PO SCH ×2 (10:28→20:18)
[2020-10-19] MEDS: TORSEMIDE 20 MG TABLET PO SCH (10:28)
[2020-10-19] MEDS: rOPINIRole HCL 1 MG TABLET PO SCH ×3 (10:28→20:17)
[2020-10-19] MEDS: ASPIRIN 81 MG TAB.CHEW PO SCH (10:29)
[2020-10-19] MEDS: AZITHROMYCIN 250 MG TABLET PO SCH (10:29)
[2020-10-19] MEDS: AMIODARONE HCL 200 MG TABLET PO SCH (10:29)
--- NOTE | 2020-10-19 10:46 | HP ---
Chief Complaint - Chief Complaint Date of Service: 10/19/20 Time of Service: 08:30 Chief Complaint: Unresponsive History of Present Illness: Nathen is a 75 yo Caucausian male who presented by [facility] from [facility] for altered mental status. He recently had spinal fusion and was discharged on morphine and baclofen. Of note he reportedly gets somnolent after the morphine and baclofen and has sometimes been given insulin and then been unable to eat because of sleep. His blood sugar was checked and was 70. No documented glucose below 70. 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 There are no associated symptoms. The patient is responsive to painful stimuli but only moans. There are no alleviating factors. There are no aggravating factors. Previous treatments have included: none. The past medical history includes: aortic stenosis, COPD, cardiomyopathy, AFib, pacemaker, CKD and CAD. The social history is positive for former tobacco use. The patient has had no known ill contacts. Patient arrives via EMS with report from [facility] of decreased responsiveness last seen normal 1 hour ago. Patient upon arrival has gag reflex intact but does not localize to pain. Patient only response is moaning. Narcan given IV due to review of medication list showing pain medicat ion post surgery, patient having increased responsiveness answering "no" to pain and "no" to needing a blanket. Repeat dose given to improve cognition. Patient was transferred to [facility] where he underwent thoracic spinal fusion and was then discharged to [facility] for strengthening. states that he had a similar episode of altered mentation due to pain medication administration. states she also has concern for altered blood sugar level due to administration of insulin and pain medication then patient is to drowsy to eat and blood sugar drops. states they previously decreased his Morphine dose due to intolerance and altered mentation. In the ER he was given glucose which had little improvement on his condition. He was then given narcan and mentation improved. Following narcan he was back to his baseline and conversant without altered mental status. He had labs showing leukocytosis and chest xray showing bilateral pneumonia. He reports cough and shortness of breath, but thinks this has been his usual. He reports back pain is currently 7/10. He otherwise feels like he has recently. Medical History (Last Reviewed 10/18/20 @ 23:33 by Khadra Chamberlain RN) Tobacco abuse (Chronic) Onset Date: ~07/17/16 very strongly encouraged him to stop smoking. Pacemaker (Chronic) Onset Date: ~05/26/15 Heart murmur (Chronic) Onset Date: ~10/23/17 Dilated cardiomyopathy (Chronic) Onset Date: Unknown COPD (chronic obstructive pulmonary disease) (Chronic) Onset Date: ~10/23/17 Aortic stenosis (Chronic) Onset Date: Unknown Atherosclerotic heart disease of [place] coronary artery without angina pectoris Atrial fibrillation CKD (chronic kidney disease), stage III History of falling Low back pain Moderate protein-calorie malnutrition Surgical History: Surgical History (Last Reviewed 10/18/20 @ 23:33 by Khadra Chamberlain RN) ICD (implantable cardioverter-defibrillator) in place (Chronic) Onset Date: ~05/2015 Hx of spinal fusion Family History: Family History (Last Reviewed 10/18/20 @ 23:33 by Khadra Chamberlain RN) Father Diabetes Heart disease H/O heart bypass surgery Mother Cancer Social History: (Last Reviewed 10/18/20 @ 23:33 by Khadra Chamberlain RN) Social History: chcf: No Marital status: lives independently: Yes household members: spouse Highest level of school completed/degree received: high school graduate Service: Yes Tobacco: Smoking Status: Former smoker tobacco type: cigarettes Smoking cigarettes per day: 20.0 Smoking packs per day: 1 Alcohol: alcohol intake: current Alcohol type: beer alcohol intake frequency: 0-2 drinks per day details: 2 or 3 beers a day. Substance Use: substance use type: does not use Dietary Habits: caffeine: Yes Review Of Systems (GEN) - Review of Systems Generalized/Overall Review: Present: Fatigue. Absent: Weakness, Chills, Fever EENTM: Present: No Symptoms Reported Respiratory: Present: Cough, Shortness of Breath Cardiac: Absent: Chest Pain, Edema Abdominal: Absent: Nausea, Vomiting Genitourinary: Absent: Burning, Frequency Musculoskeletal: Present: Back Pain Neurological: Absent: Headache, Anxiety Skin: Absent: Lesions, Rash Immunizations: IMMUNIZATION HX Immunizations Up to Date Yes History of Influenza Vaccine Yes Hx Pneumococcal Vaccination Yes Allergies/Adverse Reactions: Allergies Allergy/AdvReac Type Severity Reaction Status Date / Time No Known Allergies Allergy Verified 09/06/20 13:45 Home Medications: HOME MEDICATIONS ropinirole 2 mg tablet See Rx Instructions PO HS #360 tab 05/01/20 [Last Taken 10/18/20 12:00] pen needle, diabetic 31 gauge x 5/16" See Rx Instructions .ROUTE .COMPLEX #300 ea 07/27/20 [Last Taken Unknown] amiodarone 200 mg tablet 200 mg PO DAILY #30 tab 08/06/20 [Last Taken 10/18/20 07:00] aspirin 81 mg chewable tablet 81 mg PO DAILY #0.1 tab 08/28/20 [Last Taken 10/18/20 07:00] metoprolol succinate 25 mg tablet,extended release 24 hr 25 mg PO DAILY #90 tab 09/06/20 [Last Taken 10/18/20 07:00] Acetaminophen [Tylenol] 650 mg PO Q4H PRN 10/16/20 [Last Taken Unknown] Albuterol Sulfate [Albuterol Sulfate Hfa] 2 - 4 puff IH Q6H PRN 10/16/20 [Last Taken Unknown] Apixaban [Eliquis] 5 mg PO BID 10/16/20 [Last Taken 10/18/20 17:00] Bacitracin Zinc [Bacitracin] 1 appl TP BID 10/16/20 [Last Taken Unknown] Baclofen 10 mg PO BID PRN 10/16/20 [Last Taken 10/18/20 09:00] Bisacodyl [Dulcolax] 10 mg PO DAILY PRN 10/16/20 [Last Taken Unknown] Dapagliflozin Propanediol [Farxiga] 10 mg PO DAILY 10/16/20 [Last Taken 10/18/20 07:00] Docusate Sodium 100 mg PO BID 10/16/20 [Last Taken 10/18/20 17:00] Insulin Aspart [Novolog] 10 units SC TIDWM 10/16/20 [Last Taken 10/18/20 12:00] Insulin Glargine,Hum.rec.anlog [Lantus] 16 units SC HS 10/16/20 [Last Taken 10/17/20 20:00] Lidocaine [Lidoderm 5%] 1 patch TP DAILY 10/16/20 [Last Taken 10/18/20 07:00] Magnesium Hydroxide [Milk Of Magnesia] 30 ml PO DAILY PRN 10/16/20 [Last Taken Unknown] Melatonin 3 mg PO HS 10/16/20 [Last Taken 10/17/20 20:00] Morphine Sulfate 7.5 mg PO Q4H PRN 10/16/20 [Last Taken 10/18/20 13:07] Tamsulosin HCl 0.4 mg PO DAILY 10/16/20 [Last Taken 10/18/20 07:00] Torsemide [Demadex] 60 mg PO DAILY 10/18/20 [Last Taken 10/18/20 07:00] Exam - Exam Vital Signs: Vital Signs - Last Taken Temp 36.5 C 10/19/20 07:17 Pulse 82 10/19/20 07:17 Resp 24 H 10/19/20 07:17 BP 132/73 10/19/20 07:17 Pulse Ox 94 10/19/20 07:17 Constitutional: Present: Alert, Oriented x3, Cooperative ENT Exam: Present: hearing grossly normal Eye Exam: bilateral eye: normal inspection Back Exam: Present: other - Back with multiple sites of mepilex, no erythema or saturated bandages Respiratory: Present: respiratory distress - mild with tachypnea and abdominal breathing Cardiovascular/Chest: Present: regular rate, rhythm, no murmur Peripheral Pulses: radial (R): 2+, radial (L): 2+ Abdomen: Present: Normal bowel sounds, soft, nontender, nondistended Extremity: Present: normal inspection Skin Exam: Present: normal color, warm/dry, no cyanosis Diagnostic Studies: Abnormal Lab Results 10/18/20 10/18/20 10/18/20 Range/Units 19:00 19:00 19:00 RBC 4.08 L (4.7-6.0) M/mm3 Hgb 11.9 L (13.5-18.0) gm/dL Hct 40.8 L (42.0-52.0) % MCHC 29.2 L (32-36) g/dl RDW 15.0 H (11.5-14.0) % Immature Gran % (Auto) 0.50 H (0.001-0.429) % Lymphocytes % 15.3 L (20-51) % Monocytes % 9.2 H (0.0-9) % Basophils % 1.5 H (0.0-1.0) % Lymphocytes # 0.91 L (1.5-3.5) k/mm3 ESR 36 H (0-10) mm/hr PT 13.1 H (9.1-10.7) Seconds INR (Anticoag Therapy) 1.27 H (0.92-1.08) INR pCO2 (35.0-48.0) mmHg HCO3 (21.0-28.0) mmol/L Total CO2 (19.0-24.0) mmol/L Base Excess (-2.0-3.0) mmol/L ABG pH (7.35-7.45) ABG O2 Sat (Measured) (94.0-98.0) % Sodium (132-142) mmol/L Plasma Sodium (130-142) mmol/L Carbon Dioxide (24-32.6) mmol/L Est GFR (Non-Af Amer) (60-130) mL/min Alkaline Phosphatase (50-170) U/L B-Natriuretic Peptide (5-350) pg/mL Albumin (3.4-5.0) gm/dl Urine Glucose (UA) (NEGATIVE) mg/dL Urine Blood (NEGATIVE) /ul Urine RBC (0-5) /hpf Hyaline Casts (NONE) /LPF 10/18/20 10/18/20 10/18/20 Range/Units 19:00 19:26 19:53 RBC (4.7-6.0) M/mm3 Hgb (13.5-18.0) gm/dL Hct (42.0-52.0) % MCHC (32-36) g/dl RDW (11.5-14.0) % Immature Gran % (Auto) (0.001-0.429) % Lymphocytes % (20-51) % Monocytes % (0.0-9) % Basophils % (0.0-1.0) % Lymphocytes # (1.5-3.5) k/mm3 ESR (0-10) mm/hr PT (9.1-10.7) Seconds INR (Anticoag Therapy) (0.92-1.08) INR pCO2 74.0 H* (35.0-48.0) mmHg HCO3 36.0 H (21.0-28.0) mmol/L Total CO2 38.3 H (19.0-24.0) mmol/L Base Excess 7.2 H (-2.0-3.0) mmol/L ABG pH 7.31 L (7.35-7.45) ABG O2 Sat (Measured) (94.0-98.0) % Sodium 146 H (132-142) mmol/L Plasma Sodium 146 H (130-142) mmol/L Carbon Dioxide 38.2 H (24-32.6) mmol/L Est GFR (Non-Af Amer) 59 L (60-130) mL/min Alkaline Phosphatase 237 H (50-170) U/L B-Natriuretic Peptide 38344 H (5-350) pg/mL Albumin 2.8 L (3.4-5.0) gm/dl Urine Glucose (UA) 500 H (NEGATIVE) mg/dL Urine Blood 50 H (NEGATIVE) /ul Urine RBC 10-25 H (0-5) /hpf Hyaline Casts 0-5 H (NONE) /LPF 10/18/20 Range/Units 21:49 RBC (4.7-6.0) M/mm3 Hgb (13.5-18.0) gm/dL Hct (42.0-52.0) % MCHC (32-36) g/dl RDW (11.5-14.0) % Immature Gran % (Auto) (0.001-0.429) % Lymphocytes % (20-51) % Monocytes % (0.0-9) % Basophils % (0.0-1.0) % Lymphocytes # (1.5-3.5) k/mm3 ESR (0-10) mm/hr PT (9.1-10.7) Seconds INR (Anticoag Therapy) (0.92-1.08) INR pCO2 (35.0-48.0) mmHg HCO3 33.2 H (21.0-28.0) mmol/L Total CO2 34.6 H (19.0-24.0) mmol/L Base Excess 9.2 H (-2.0-3.0) mmol/L ABG pH 7.51 H (7.35-7.45) ABG O2 Sat (Measured) 98.2 H (94.0-98.0) % Sodium (132-142) mmol/L Plasma Sodium (130-142) mmol/L Carbon Dioxide (24-32.6) mmol/L Est GFR (Non-Af Amer) (60-130) mL/min Alkaline Phosphatase (50-170) U/L B-Natriuretic Peptide (5-350) pg/mL Albumin (3.4-5.0) gm/dl Urine Glucose (UA) (NEGATIVE) mg/dL Urine Blood (NEGATIVE) /ul Urine RBC (0-5) /hpf Hyaline Casts (NONE) /LPF Laboratory Results WBC 6.0 K/mm3 (4.0-10.5) 10/18/20 19:00 RBC 4.08 M/mm3 (4.7-6.0) L 10/18/20 19:00 Hgb 11.9 gm/dL (13.5-18.0) L 10/18/20 19:00 Hct 40.8 % (42.0-52.0) L 10/18/20 19:00 MCV 100.0 fl (78-100) 10/18/20 19:00 MCH 29.2 pg (27-31) 10/18/20 19:00 MCHC 29.2 g/dl (32-36) L 10/18/20 19:00 RDW 15.0 % (11.5-14.0) H 10/18/20 19:00 Plt Count 239 K/mm3 (150-450) 10/18/20 19:00 MPV 8.6 fl (8-11.3) 10/18/20 19:00 Immature Gran % (Auto) 0.50 % (0.001-0.429) H 10/18/20 19:00 Immature Gran # (Auto) 0.03 K/mm3 (0.000-0.0310) 10/18/20 19:00 Neutrophils % 70.6 % (42-75.0) 10/18/20 19:00 Lymphocytes % 15.3 % (20-51) L 10/18/20 19:00 Monocytes % 9.2 % (0.0-9) H 10/18/20 19:00 Eosinophils % 2.9 % (0.0-3.0) 10/18/20 19:00 Basophils % 1.5 % (0.0-1.0) H 10/18/20 19:00 Nucleated RBC % 0.0 k/mm3 (0-1) 10/18/20 19:00 Neutrophils # 4.2 K/mm3 (1.3-6.0) 10/18/20 19:00 Lymphocytes # 0.91 k/mm3 (1.5-3.5) L 10/18/20 19:00 Monocytes # 0.6 k/mm3 (0.0-1.0) 10/18/20 19:00 Eosinophils # 0.2 k/mm3 (0.0-0.7) 10/18/20 19:00 Absolute Basophils 0.1 k/mm3 (0.0-0.1) 10/18/20 19:00 ESR 36 mm/hr (0-10) H 10/18/20 19:00 PT 13.1 Seconds (9.1-10.7) H 10/18/20 19:00 INR (Anticoag Therapy) 1.27 INR (0.92-1.08) H 10/18/20 19:00 PTT ([facility]ase) 31.3 Seconds (24-32) 10/18/20 19:00 pCO2 43.0 mmHg (35.0-48.0) 10/18/20 21:49 pO2 106.5 mmHg (83.0-108.0) 10/18/20 21:49 HCO3 33.2 mmol/L (21.0-28.0) H 10/18/20 21:49 Total CO2 34.6 mmol/L (19.0-24.0) H 10/18/20 21:49 Base Excess 9.2 mmol/L (-2.0-3.0) H 10/18/20 21:49 ABG pH 7.51 (7.35-7.45) H 10/18/20 21:49 ABG O2 Sat (Measured) 98.2 % (94.0-98.0) H 10/18/20 21:49 Sodium 146 mmol/L (132-142) H 10/18/20 19:00 Plasma Sodium 146 mmol/L (130-142) H 10/18/20 19:00 Potassium 3.9 mmol/L (3.4-4.6) 10/18/20 19:00 Chloride 104 mmol/L (97-106) 10/18/20 19:00 Carbon Dioxide 38.2 mmol/L (24-32.6) H 10/18/20 19:00 Anion Gap 7.7 mmol/L (6.8-13.8) 10/18/20 19:00 BUN 22 mg/dL (6-23) 10/18/20 19:00 Creatinine 1.27 mg/dL (0.4-1.4) 10/18/20 19:00 Est GFR (Non-Af Amer) 59 mL/min (60-130) L 10/18/20 19:00 BUN/Creatinine Ratio 17.3 (9.0-21.6) 10/18/20 19: Random Glucose 77 mg/dL (70-110) D 10/18/20 19:00 Lactic Acid, Venous 0.9 mmol/L (0.4-2.0) 10/18/20 19:00 Calcium 8.6 mg/dL (7.9-10.9) 10/18/20: Calcium Adj for Albumin 9.2 mg/dL (8.4-10.2) 10/18/20 19: Total Bilirubin 0.7 mg/dL (0.0-1.1) 10/18/20 19:00 AST 24 U/L (0-48) 10/18/20 19:00 ALT 19 U/L (19-67) 10/18/20 19:00 Alkaline Phosphatase 237 U/L (50-170) H 10/18/20 19:00 Troponin I 0.024 ng/mL (0.00-0.10) 10/18/20 19:00 B-Natriuretic Peptide 74586 pg/mL (5-350) H 10/18/20 19:00 Total Protein 6.9 gm/dL (6.2-8.2) 10/18/20 19:00 Albumin 2.8 gm/dl (3.4-5.0) L 10/18/20 19:00 Urine Color Yellow 10/18/20: Urine Appearance Clear (CLEAR) 10/18/20: Urine pH 6.0 pH (5.0-7.0) 10/18/20: Ur Specific [place] 1.015 SP.GR. (1.005-1.030) 10/18/20 19: Urine Protein Negative mg/dL (NEGATIVE) 10/18/20: Urine Glucose (UA) 500 mg/dL (NEGATIVE) H 06/10/21 19:26 Urine Ketones Negative mg/dL (NEGATIVE) 10/18/20 19:26 Urine Blood 50 /ul (NEGATIVE) H 10/18/20 19: Urine Nitrate Negative (NEGATIVE) 10/18/20 19: Urine Bilirubin Negative mg/dl (NEGATIVE) 10/18/20 19: Urine Urobilinogen Normal EU/dl (NORMAL) 10/18/20 19:26 Ur Leukocyte Esterase Negative /ul (NEGATIVE) 10/18/20 19: Urine RBC 10-25 /hpf (0-5) H 10/18/20 19:26 Urine WBC None seen /hpf (0-5) 10/18/20 19:26 Ur Epithelial Cells None seen /hpf (0-5) 10/18/20 19: Urine Bacteria Trace (NONE) 10/18/20 19: Hyaline Casts 0-5 /LPF (NONE) H 10/18/20 19:26 Urine Culture Comments No culture indicated 10/18/20 19: SARS-CoV-2 (PCR) Not detected (NotDetected) 10/18/20 20:00 Assessment/Plan - Narrative Narrative: Nathen is a 75 yo male with metabolic encephalopathy and acute r espiratory failure with hypercapnea and acidosis secondary to unintentional morphine/baclofen overdose. He prescribed medications appear to be too strong for him following his back surgery. This was corrected in the ER by narcan and bipap. Chest xray also shows pneumonia which may be secondary to decreased pulmonary function from narcotics. Will treat with rocephin/azithromycin. Will discontinue morphine and start hydrocodone for pain control. He will be admitted to acute inpatient status for treatment of pneumonia, pain control, and monitoring of mental status and pain with adjustment in pain medications. Suspect 2-3 days to see that pneumonia is improving, pain is controlled, and he has no further issues with mental status. - Assessment/Plan (1) Acute metabolic encephalopathy Problem: Acute (2) Acute respiratory failure with hypercapnia Problem: Acute (3) Respiratory acidosis Problem: Acute (4) Opiate overdose Problem: Acute Qualifiers: Encounter type: initial encounter Injury intent: accidental or unintentional Qualified Code(s): T40.601A - Poisoning by unspecified narcotics, accidental (unintentional), initial encounter (5) Bilateral pneumonia Problem: Acute Qualifiers: Pneumonia type: due to unspecified organism Lung location: lower lobe of lung Qualified Code(s): J18.9 - Pneumonia, unspecified organism (6) Diabetes mellitus Problem: Chronic Qualifiers: Diabetes mellitus type: type 2 Diabetes mellitus intermediate insulin use: with termite technician use Diabetes mellitus complication status: without complication Qualified Code(s): E11.9 - Type 2 diabetes mellitus without complications; Z79.4 - group home (current) use of insulin
[2020-10-19] MEDS: HYDROcodone/ACETAMINOPHEN 1 EACH TABLET PO PRN ×2 (11:54→17:16)
[2020-10-19] MEDS: BACLOFEN 10 MG TABLET PO PRN (14:04)
[2020-10-19] MEDS: INSULIN LISPRO 100 UNITS/ML VIAL SC SCH (17:17)
[2020-10-19] MEDS: TAMSULOSIN HCL 0.4 MG CAP.SR.24H PO SCH (17:18)
[2020-10-19] MEDS: MELATONIN 3,000 MCG TABLET PO SCH (20:18)
[2020-10-19] MEDS: INSULIN GLARGINE,HUM.REC.ANLOG 100 UNITS/ML VIAL SC SCH (20:22)
[2020-10-19] MEDS ORDERED: ROPINIROLE 2 MG PO SCH (21:00)
[2020-10-20 06:55] LABS: Hematocrit 40.4 % (42.0-52.0); Hemoglobin 11.8 gm/dL (13.5-18.0); Mean Cell Volume 98.1 fl (78-100); Mean Corpuscular Hemoglobin 28.6 pg (27-31); Mean Corpuscular Hgb Conc 29.2 g/dl (32-36); Mean Platelet Volume 8.5 fl (8-11.3); Neutrophil # 4.3 K/mm3 (1.3-6.0); Neutrophil % 66.7 % (42-75.0); Platelet Count 236 K/mm3 (150-450); Red Blood Count 4.12 M/mm3 (4.7-6.0); White Blood Count 6.4 K/mm3 (4.0-10.5)
[2020-10-20 07:11] LABS: Albumin * 2.6 gm/dl (3.4-5.0); Anion Gap 7.3 mmol/L (6.8-13.8); BUN/Creatinine Ratio 19.7 (9.0-21.6); Bilirubin, Total 0.6 mg/dL (0.0-1.1); Ca. Corrected For Albumin 9.3 mg/dL (8.4-10.2); Calcium * 8.5 mg/dL (7.9-10.9); Carbon Dioxide 38.6 mmol/L (24-32.6); Potassium 3.9 mmol/L (3.4-4.6); Total Protein 6.6 gm/dL (6.2-8.2)
[2020-10-20] MEDS: INSULIN LISPRO 100 UNITS/ML VIAL SC SCH ×4 (07:28→17:42)
[2020-10-20] MEDS: DOCUSATE SODIUM 100 MG CAPSULE PO SCH ×2 (09:44→21:38)
[2020-10-20] MEDS: ASPIRIN 81 MG TAB.CHEW PO SCH (09:44)
[2020-10-20] MEDS: AMIODARONE HCL 200 MG TABLET PO SCH (09:44)
[2020-10-20] MEDS: TORSEMIDE 20 MG TABLET PO SCH (09:45)
[2020-10-20] MEDS: APIXABAN 5 MG TABLET PO SCH ×2 (09:46→21:38)
[2020-10-20] MEDS: rOPINIRole HCL 1 MG TABLET PO SCH ×3 (09:47→21:39)
[2020-10-20] MEDS: AZITHROMYCIN 250 MG TABLET PO SCH (09:47)
[2020-10-20] MEDS: METOPROLOL SUCCINATE 25 MG TABLET.SA PO SCH (09:47)
[2020-10-20] MEDS: BACLOFEN 10 MG TABLET PO PRN ×2 (09:48→22:01)
[2020-10-20] MEDS: LIDOCAINE 1 PATCH ADH..PATCH TP SCH (09:48)
--- NOTE | 2020-10-20 09:54 | PN ---
Subjective - Date and Time Seen Date: 10/20/20 Time: 09:52 Subjective Narrative: patient is AAO x 3 now. back wound culture from 10/16 - polymicrobial growth-MRSA, Pseudomonas,klebsiella Pneumonia. Objective - Review of Systems Generalized/Overall Review: Reports: Weakness. Denies: Chills, Fever EENTM: Denies: Blurred Vision Respiratory: Denies: Cough, Shortness of Breath, Orthopnea Cardiac: Reports: Chest Pain. Denies: Edema, Palpitations Abdominal: Denies: Nausea, Vomiting, Hematemesis Genitourinary Symptoms: Denies: Urgency, Frequency Musculoskeletal Complaints: Reports: Back Pain Neurological: Denies: Headache Skin: Denies: Lesions, Rash Misc: All systems neg except as marked - Vitals Vitals: Last Vital Signs Temp 36.8 C 10/20/20 07:00 Pulse 94 10/20/20 07:00 Resp 20 10/20/20 07:00 BP 113/73 10/20/20 07:00 Pulse Ox 93 10/20/20 07:00 - Abnormal Lab Findings Abnormal Lab Findings: Abnormal Lab Results 10/20/20 10/20/20 Range/Units 06:45 06:45 RBC 4.12 L (4.7-6.0) M/mm3 Hgb 11.8 L (13.5-18.0) gm/dL Hct 40.4 L (42.0-52.0) % MCHC 29.2 L (32-36) g/dl RDW 15.0 H (11.5-14.0) % Lymphocytes % 14.6 L (20-51) % Monocytes % 10.2 H (0.0-9) % Eosinophils % 6.8 H (0.0-3.0) % Basophils % 1.4 H (0.0-1.0) % Lymphocytes # 0.93 L (1.5-3.5) k/mm3 Sodium 145 H (132-142) mmol/L Plasma Sodium 146 H (130-142) mmol/L Carbon Dioxide 38.6 H (24-32.6) mmol/L Random Glucose 143 H D (70-110) mg/dL ALT 18 L (19-67) U/L Alkaline Phosphatase 229 H (50-170) U/L Albumin 2.6 L (3.4-5.0) gm/dl - Exam Constitutional: Present: Alert, Oriented x3, Cooperative ENT Exam: Present: hearing grossly normal Neck: Present: supple. Absent: limited range of motion, lymphadenopathy (R) Respiratory: Present: decreased breath sounds, No rales, No wheezing, other Cardiovascular/Chest: Present: regular rate, rhythm, no JVD, no murmur Abdomen: Present: Normal bowel sounds, soft, nontender, nondistended Extremity: Present: no calf tenderness, pedal edema Assessment/Plan Plan Narrative: Nathen was admitted for altered mental status likely due to his narcotic pain medicine he was taking for spinal fusion as he perked up after reversal with Na rcan. He was however found to have also new bilateral pneumonia. He is now awake alert oriented x3. He was started on IV Rocephin and azithromycin. His culture of his back incision for his spinal fusion from the emergency room on 10/16/2020 is showing polymicrobial growth-MRSA, Pseudomonas, Klebsiella pneumonia. I am not sure what to make of this as this could be also just a result of contamination from an aseptic technique however since all of them are sensitive to Levaquin we will discontinue his Rocephin and azithromycin and starting on Levaquin 750 mg IV daily as this will also cover his pneumonia. Reviewing the emergency room physician notes it was mentioned that patient had some greenish colored discharge on the dressing. There was no mention of sweet grape like odor asthat would point it more towards pseudomonas. - Problems/Diagnosis (1) Acute metabolic encephalopathy Problem: Resolved (2) Acute respiratory failure with hypercapnia Problem: Resolved (3) Altered mental status Problem: Resolved Qualifiers: Altered mental status type: unspecified Qualified Code(s): R41.82 - Altered mental status, unspecified (4) Opiate overdose Problem: Resolved Qualifiers: Encounter type: initial encounter Injury intent: accidental or unintentional Qualified Code(s): T40.601A - Poisoning by unspecified narcotics, accidental (unintentional), initial encounter (5) Bilateral pneumonia Problem: Acute Qualifiers: Pneumonia type: due to unspecified organism Lung location: lower lobe of lung Qualified Code(s): J18.9 - Pneumonia, unspecified organism (6) Wound infection after surgery Problem: Acute (7) COPD (chronic obstructive pulmonary disease) Problem: Chronic Qualifiers: COPD type: unspecified COPD Qualified Code(s): J44.9 - Chronic obstructive pulmonary disease, unspecified (8) Diabetes mellitus Problem: Chronic Qualifiers: Diabetes mellitus type: type 2 Diabetes mellitus correction insulin use: with movie editor use Diabetes mellitus complication status: without complication Qualified Code(s): E11.9 - Type 2 diabetes mellitus without complications; Z79.4 - half-way (current) use of insulin (9) CAD (coronary artery disease) Problem: Chronic Qualifiers: Coronary Disease-Associated Artery/Lesion type: unspecified vessel or lesion type [place] vs. transplanted heart: [place] heart Associated angina: angina presence unspecified (10) Hyperlipidemia Problem: Chronic Qualifiers: (11) Hypertension Problem: Chronic Qualifiers: Hypertension type: essential hypertension Qualified Code(s): I10 - Essential (primary) hypertension (12) S/P TAVR (transcatheter aortic valve replacement) Problem: Chronic (13) Type 2 diabetes mellitus Problem: Chronic Qualifiers: Diabetes mellitus movie editor insulin use: with movie editor use Diabetes mellitus complication status: with other specified complication Qualified Code(s): E11.69 - Type 2 diabetes mellitus with other specified complication; Z79.4 - half-way (current) use of insulin
[2020-10-20] MEDS: LEVOFLOXACIN IN DEXTROSE 5 % 750 MG/150 ML BAG IV SCH (11:19)
[2020-10-20] MEDS: HYDROcodone/ACETAMINOPHEN 1 EACH TABLET PO PRN ×2 (17:12→22:00)
[2020-10-20] MEDS: TAMSULOSIN HCL 0.4 MG CAP.SR.24H PO SCH (18:05)
[2020-10-20] MEDS: MELATONIN 3,000 MCG TABLET PO SCH (21:38)
[2020-10-20] MEDS: INSULIN GLARGINE,HUM.REC.ANLOG 100 UNITS/ML VIAL SC SCH (21:39)
[2020-10-21] MEDS: INSULIN LISPRO 100 UNITS/ML VIAL SC SCH ×3 (07:06→17:16)
[2020-10-21] MEDS: BACLOFEN 10 MG TABLET PO PRN (07:17)
[2020-10-21] MEDS: LIDOCAINE 1 PATCH ADH..PATCH TP SCH (08:44)
[2020-10-21] MEDS: ASPIRIN 81 MG TAB.CHEW PO SCH (08:45)
[2020-10-21] MEDS: TORSEMIDE 20 MG TABLET PO SCH (08:45)
[2020-10-21] MEDS: METOPROLOL SUCCINATE 25 MG TABLET.SA PO SCH (08:46)
[2020-10-21] MEDS: AMIODARONE HCL 200 MG TABLET PO SCH (08:46)
[2020-10-21] MEDS: APIXABAN 5 MG TABLET PO SCH ×2 (08:46→20:11)
[2020-10-21] MEDS: rOPINIRole HCL 1 MG TABLET PO SCH ×3 (08:46→20:12)
[2020-10-21] MEDS: DOCUSATE SODIUM 100 MG CAPSULE PO SCH ×2 (08:46→20:11)
--- NOTE | 2020-10-21 08:51 | PN ---
Subjective - Date and Time Seen Date: 10/21/20 Time: 08:50 Subjective Narrative: Awake alert oriented x3. No complaints. afebrile. Tmax 37.3. Objective - Review of Systems Generalized/Overall Review: Denies: Chills, Fever EENTM: Denies: Blurred Vision Respiratory: Denies: Cough, Shortness of Breath, Orthopnea Cardiac: Denies: Chest Pain, Edema, Palpitations Abdominal: Denies: Nausea, Vomiting, Abdominal Pain Genitourinary Symptoms: Denies: Urgency, Frequency Neurological: Denies: Headache Skin: Denies: Lesions Misc: All systems neg except as marked - Vitals Vitals: Last Vital Signs Temp 36.6 C 10/21/20 07:00 Pulse 89 10/21/20 07:00 Resp 20 10/21/20 07:00 BP 115/70 10/21/20 07:00 Pulse Ox 94 10/21/20 07:00 - Exam Constitutional: Present: Alert, Oriented x3, Cooperative ENT Exam: Present: hearing grossly normal Neck: Present: supple. Absent: normal inspection, lymphadenopathy (L) Respiratory: Present: decreased breath sounds, No rales, No wheezing Cardiovascular/Chest: Present: regular rate, rhythm, no JVD, no murmur Abdomen: Present: Normal bowel sounds, soft, nontender, nondistended Extremity: Present: no calf tenderness. Absent: lower extremity edema Assessment/Plan Plan Narrative: Nathen was started on IV Levaquin 750 mg yesterday for polymicrobial incisional wound infection growing MRSA, Pseudomonas, Klebsiella. The Levaquin will also cover for his bilateral infiltrates suspicious for pneumonia. He is afebrile. He will need to follow-up with his surgeon to see if he needs debridement. We will continue with his current medications and present management. - Problems/Diagnosis (1) Wound infection after surgery Problem: Acute (2) Bilateral pneumonia Problem: Acute Qualifiers: Pneumonia type: due to unspecified organism Lung location: lower lobe of lung Qualified Code(s): J18.9 - Pneumonia, unspecified organism (3) Acute metabolic encephalopathy Problem: Resolved (4) Acute respiratory failure with hypercapnia Problem: Resolved (5) Altered mental status Problem: Resolved Qualifiers: Altered mental status type: unspecified Qualified Code(s): R41.82 - Altered mental status, unspecified (6) Opiate overdose Problem: Resolved Qualifiers: Encounter type: initial encounter Injury intent: accidental or unintentional Qualified Code(s): T40.601A - Poisoning by unspecified narcotics, accidental (unintentional), initial encounter (7) COPD (chronic obstructive pulmonary disease) Problem: Chronic Qualifiers: COPD type: unspecified COPD Qualified Code(s): J44.9 - Chronic obstructive pulmonary disease, unspecified (8) Diabetes mellitus Problem: Chronic Qualifiers: Diabetes mellitus type: type 2 Diabetes mellitus usp insulin use: with director cloud transformation use Diabetes mellitus complication status: without complication Qualified Code(s): E11.9 - Type 2 diabetes mellitus without complications; Z79.4 - concrete building assembler (current) use of insulin (9) CAD (coronary artery disease) Problem: Chronic Qualifiers: Coronary Disease-Associated Artery/Lesion type: unspecified vessel or lesion type [place] vs. transplanted heart: [place] heart Associated angina: angina presence unspecified (10) Hyperlipidemia Problem: Chronic Qualifiers: (11) Hypertension Problem: Chronic Qualifiers: Hypertension type: essential hypertension Qualified Code(s): I10 - Ess ential (primary) hypertension (12) S/P TAVR (transcatheter aortic valve replacement) Problem: Chronic (13) Type 2 diabetes mellitus Problem: Chronic Qualifiers: Diabetes mellitus director cloud transformation insulin use: with director cloud transformation use Diabetes mellitus complication status: with other specified complication Qualified Code(s): E11.69 - Type 2 diabetes mellitus with other specified complication; Z79.4 - concrete building assembler (current) use of insulin
[2020-10-21] MEDS: LEVOFLOXACIN IN DEXTROSE 5 % 750 MG/150 ML BAG IV SCH (10:01)
[2020-10-21] MEDS: HYDROcodone/ACETAMINOPHEN 1 EACH TABLET PO PRN ×2 (13:48→22:49)
[2020-10-21] MEDS: TAMSULOSIN HCL 0.4 MG CAP.SR.24H PO SCH (18:26)
[2020-10-21] MEDS: MELATONIN 3,000 MCG TABLET PO SCH (20:12)
[2020-10-21] MEDS: INSULIN GLARGINE,HUM.REC.ANLOG 100 UNITS/ML VIAL SC SCH (20:14)
[2020-10-22 06:35] LABS: Hematocrit 39.8 % (42.0-52.0); Hemoglobin 11.5 gm/dL (13.5-18.0); Mean Cell Volume 100.5 fl (78-100); Mean Corpuscular Hgb Conc 28.9 g/dl (32-36); Mean Platelet Volume 8.8 fl (8-11.3); Neutrophil # 3.9 K/mm3 (1.3-6.0); Neutrophil % 64.6 % (42-75.0); Platelet Count 215 K/mm3 (150-450); Red Blood Count 3.96 M/mm3 (4.7-6.0); White Blood Count 6.1 K/mm3 (4.0-10.5)
[2020-10-22 06:41] LABS: BUN/Creatinine Ratio 16.1 (9.0-21.6); Calcium * 8.7 mg/dL (7.9-10.9); Carbon Dioxide 42.9 mmol/L (24-32.6); Estimated Creat Clear 65.4; Potassium 3.9 mmol/L (3.4-4.6)
[2020-10-22] MEDS: INSULIN LISPRO 100 UNITS/ML VIAL SC SCH ×3 (07:51→17:30)
[2020-10-22] MEDS: HYDROcodone/ACETAMINOPHEN 1 EACH TABLET PO PRN ×2 (09:07→13:16)
[2020-10-22] MEDS: AMIODARONE HCL 200 MG TABLET PO SCH (09:08)
[2020-10-22] MEDS: DOCUSATE SODIUM 100 MG CAPSULE PO SCH ×2 (09:09→20:05)
[2020-10-22] MEDS: TORSEMIDE 20 MG TABLET PO SCH (09:09)
[2020-10-22] MEDS: METOPROLOL SUCCINATE 25 MG TABLET.SA PO SCH (09:09)
[2020-10-22] MEDS: rOPINIRole HCL 1 MG TABLET PO SCH ×3 (09:09→20:06)
[2020-10-22] MEDS: LIDOCAINE 1 PATCH ADH..PATCH TP SCH (09:09)
[2020-10-22] MEDS: APIXABAN 5 MG TABLET PO SCH ×2 (09:10→20:06)
[2020-10-22] MEDS: ASPIRIN 81 MG TAB.CHEW PO SCH (09:10)
[2020-10-22] MEDS: LEVOFLOXACIN IN DEXTROSE 5 % 750 MG/150 ML BAG IV SCH (09:21)
--- NOTE | 2020-10-22 13:00 | PN ---
Subjective - Date and Time Seen Date: 10/22/20 Time: 11:50 Subjective Narrative: Nathen is a 75 yo Caucausian male who presented by [facility] from [facility] on 10/18/20 for altered mental status. He recently had spinal fusion (at [facility]? he doesn't know the surgeons name. I don't have any of the records to review at the present time, so we will obtain them). and was discharged on morphine and baclofen. At the snf he became somnolent after the morphine and baclofen and had sometimes been given insulin and then been unable to eat because of sleep, resulting in spells of hypoglycemia. No documented glucose below 70. 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 There were no associated symptoms. The patient was responsive to painful stimuli but only moaned. His PMH includes: CHF, aortic stenosis, COPD, cardiomyopathy, AFib, pacemaker, CKD and CAD. In the ER he had gag reflex intact. Narcan given IV due to review of medication list showing pain medication post surgery, patient having increased responsiveness answering "no" to pain and "no" to needing a blanket. Repeat dose given to improve cognition. He had thoracic spine fusion at [facility] in [place] (about a month ago?) and was then discharged to [facility] for strengthening. In the ER he was given glucose which had no apparent effect. Following narcan he was back to his baseline and conversant without altered mental status. He had labs showing leukocytosis and chest xray showing bilateral pneumonia. He reported cough and shortness of breath, but thought this was his usual. He reported back pain 11/17. He has had no fever. CXR was read by radiology as pneumonia OR CHF. sed rate was not elevated. BNP was significantly elevated. He was seen on October [address] [facility] ER for a thoracic fusion surgical wound green drainage. culture grew three types of bacteria. He was admitted for this hospitalization on October 18. Even on October 16, through this current hospitalization he has had NO fever. I suspect his diagnosis is actually CHF with pulmonary edema and he is growing bacteria from a surgical wound that appears to me today to be superficial. I suspect his mentation problems were entirely due to medication. Objective - Review of Systems Generalized/Overall Review: Reports: Weakness EENTM: Reports: No Symptoms Reported Respiratory: Reports: Cough, Shortness of Breath Cardiac: Reports: Edema Abdominal: Reports: No Symptoms Reported Genitourinary Symptoms: Reports: No Symptoms Reported Musculoskeletal Complaints: Reports: Other - post surgical thoracic spine pain Neurological: Reports: No Symptoms Reported Skin: Reports: Other - surgical wound draining Endocrine: Reports: No Symptoms Reported Misc: All systems neg except as marked - Vitals Vitals: Last Vital Signs Temp 36.7 C 10/22/20 10:46 Pulse 64 10/22/20 10:46 Resp 22 H 10/22/20 10:46 BP 101/64 10/22/20 10:46 Pulse Ox 93 10/22/20 10:46 - Abnormal Lab Findings Abnormal Lab Findings: Abnormal Lab Results 10/22/20 10/22/20 Range/Units 06:27 06:27 RBC 3.96 L (4.7-6.0) M/mm3 Hgb 11.5 L (13.5-18.0) gm/dL Hct 39.8 L (42.0-52.0) % MCV 100.5 H (78-100) fl MCHC 28.9 L (32-36) g/dl RDW 15.0 H (11.5-14.0) % Lymphocytes % 16.1 L (20-51) % Monocytes % 11.0 H (0.0-9) % Eosinophils % 6.7 H (0.0-3.0) % Basophils % 1.3 H (0.0-1.0) % Lymphocytes # 0.98 L (1.5-3.5) k/mm3 Sodium 146 H (132-142) mmol/L Plasma Sodium 147 H (130-142) mmol/L Carbon Dioxide 42.9 H (24-32.6) mmol/L Anion Gap 4.0 L (6.8-13.8) mmol/L Random Glucose 132 H (70-110) mg/dL - Exam Constitutional: Present: Alert, Oriented x3, Cooperative, Well developed, Well nourished, No distress ENT Exam: Present: normal ENT inspection, hearing grossly normal Neck: Present: normal inspection. Absent: lymphadenopathy (R), lymphadenopathy (L), thyromegaly Breasts: Present: Other - male Respiratory: Present: lungs clear, decreased breath sounds Cardiovascular/Chest: Present: regular rate, rhythm, no gallop, no JVD Abdomen: Present: Normal bowel sounds, soft, nontender, nondistended, no hepatospenomegaly, no masses /Rectal: Present: Exam deferred Extremity: Present: lower extremity edema Skin Exam: Present: normal color, warm/dry, no cyanosis, other - dressing on surg wound placed 10/16. I removed them today. almost all the wounds are closed with no drainage or abnormal redness. The two most superior mid line wounds are open 1-2 mm with no drainage now. we will reapply sterile dressings. Lymphatic: Present: no adenopathy Neurologic: Present: oriented x 3 Appearance: Present: appropriate appearance, appropriate insight, neat Eye contact: Present: cooperative, good eye contact, normal speech Thoughts: Present: normal thought pattern Assessment/Plan - Problems/Diagnosis (1) Encephalopathy acute Problem: Resolved Narrative: due to opiates plus baclophen. plan is to minimize that type of medicine (2) Drainage from surgical wound Problem: Acute Narrative: seems superficial to me. I need to discuss with his surgeon. growing three organisms (3) Diabetes mellitus Problem: Chronic Qualifiers: Diabetes mellitus type: type 2 Diabetes mellitus senior living insulin use: with terminal computer operator use Diabetes mellitus complication status: without complication Qualified Code(s): E11.9 - Type 2 diabetes mellitus without complications; Z79.4 - superintendent container terminal (current) use of insulin Narrative: with hypoglycemia due to poor intake due to sedation due to medication. sugar seems stable now. (4) Acute CHF Problem: Acute Qualifiers: Heart failure type: systolic Qualified Code(s): I50.21 - Acute systolic (congestive) heart failure Narrative: Improved. I think the data are more consistent with CHF and pulmonary edema
--- NOTE | 2020-10-22 14:56 | PN ---
Sudha Note - Interim Date: 10/22/20 Time: 14:52 Narrative: 10/22/20 14:52 I didn't have access to any records about his thoracic spine fusion when I made rounds on him today. Mr Do didn't know the name of his surgeon. I had my nurses check with [facility] in [place] at the start of this afternoon, because somewhere in this record [facility] was mentioned. According to that hospital, he's not been there for 2 years. I had my nurses then check at the [facility] and that was where he had his surgery. I requested those records this afternoon. His neurosurgeon is Dr. Tommy Santana. I updated him by phone just now, and based on my description, we decided for the time being we should do what we are doing. He has a followup appt at the [facility] November 05.
[2020-10-22] MEDS: BACLOFEN 10 MG TABLET PO PRN (15:55)
[2020-10-22] MEDS: TAMSULOSIN HCL 0.4 MG CAP.SR.24H PO SCH (18:08)
[2020-10-22] MEDS: MELATONIN 3,000 MCG TABLET PO SCH (20:06)
[2020-10-22] MEDS: INSULIN GLARGINE,HUM.REC.ANLOG 100 UNITS/ML VIAL SC SCH (20:08)
[2020-10-23] MEDS: HYDROcodone/ACETAMINOPHEN 1 EACH TABLET PO PRN ×4 (00:56→23:30)
[2020-10-23] MEDS: BACLOFEN 10 MG TABLET PO PRN (04:50)
--- NOTE | 2020-10-23 06:57 | PN ---
Subjective - Date and Time Seen Date: 10/23/20 Time: 06:20 Subjective Narrative: Nathen is a 75 yo Caucausian male who presented by [facility] from [facility] on 10/18/20 for altered mental status. He [facility] I spoke with the neurosurgeon afternoon, so he is aware. Unless he worsens or something else comes up, he has a followup appt there on November 05. I requested records yesterday, but don't have them yet. He improved with narcan around the time of admission here. He is stable. He was sleeping this morning, but when I woke him up he denied pain and was oriented, though sleepy. Prior to this admission he was at [facility] for rehab after spinal surgery. I suspect his diagnosis is CHF with pulmonary edema. I think the green drainage from his surgical wound growing three different organisms is superficial. I think his mentation problems were due to morphine and baclofen. He is stable. Vital signs are stable. There is no fever, nor has there been any. I think we can taper his O2 and stop telemetry. We are now working on intermediate placement. Objective - Review of Systems Generalized/Overall Review: Reports: Weakness EENTM: Reports: No Symptoms Reported Respiratory: Reports: No Symptoms Reported Cardiac: Reports: Edema Abdominal: Reports: No Symptoms Reported Genitourinary Symptoms: Reports: No Symptoms Reported Musculoskeletal Complaints: Reports: Back Pain Neurological: Reports: No Symptoms Reported Skin: Reports: Other Endocrine: Reports: Intolerance to Cold - felt cold this morning. will get him a blanket Misc: All systems neg except as marked - Vitals Vitals: Last Vital Signs Temp 36.9 C 10/23/20 02:00 Pulse 93 10/23/20 02:00 Resp 16 10/23/20 02:00 BP 113/73 10/23/20 02:00 Pulse Ox 95 10/23/20 02:00 - Exam Constitutional: Present: Oriented x3, Cooperative, Well developed, Well nourished, No distress, Somnolent ENT Exam: Present: normal ENT inspection Neck: Present: normal inspection. Absent: lymphadenopathy (R), lymphadenopathy (L), thyromegaly Breasts: Present: Other - male Respiratory: Present: lungs clear, no respiratory distress Cardiovascular/Chest: Present: regular rate, rhythm, no gallop, no JVD, no murmur, edema - legs mild bilateral Abdomen: Present: Normal bowel sounds, soft, nontender, nondistended, no hepatospenomegaly, no masses /Rectal: Present: Exam deferred Extremity: Present: normal capillary refill Skin Exam: Present: normal color, warm/dry, no cyanosis Lymphatic: Present: no adenopathy Appearance: Present: appropriate appearance Eye contact: Present: cooperative, good eye contact, normal speech Thoughts: Present: normal thought pattern Assessment/Plan - Problems/Diagnosis (1) Encephalopathy acute Problem: Resolved (2) Drainage from surgical wound Problem: Acute Narrative: was none when I looked at the wounds yesterday. problem most likely superficial only. needs regular dressing changes at this point, but nothing else. (3) Diabetes mellitus Problem: Chronic Qualifiers: Diabetes mellitus type: type 2 Diabetes mellitus residential insulin use: with residential use Diabetes mellitus complication status: without complication Qualified Code(s): E11.9 - Type 2 diabetes mellitus without complications; Z79.4 - termination clerk (current) use of insulin (4) Acute CHF Problem: Resolved Qualifiers: Heart failure type: systolic Qualified Code(s): I50.21 - Acute systolic (congestive) heart failure
[2020-10-23] MEDS: INSULIN LISPRO 100 UNITS/ML VIAL SC SCH ×3 (07:57→17:35)
[2020-10-23] MEDS: LIDOCAINE 1 PATCH ADH..PATCH TP SCH (09:30)
[2020-10-23] MEDS: AMIODARONE HCL 200 MG TABLET PO SCH (09:30)
[2020-10-23] MEDS: TORSEMIDE 20 MG TABLET PO SCH (09:30)
[2020-10-23] MEDS: ASPIRIN 81 MG TAB.CHEW PO SCH (09:30)
[2020-10-23] MEDS: APIXABAN 5 MG TABLET PO SCH ×2 (09:30→20:28)
[2020-10-23] MEDS: rOPINIRole HCL 1 MG TABLET PO SCH ×3 (09:31→20:28)
[2020-10-23] MEDS: METOPROLOL SUCCINATE 25 MG TABLET.SA PO SCH (09:31)
[2020-10-23] MEDS: LEVOFLOXACIN IN DEXTROSE 5 % 750 MG/150 ML BAG IV SCH (09:31)
[2020-10-23] MEDS: DOCUSATE SODIUM 100 MG CAPSULE PO SCH ×2 (09:31→20:29)
[2020-10-23] MEDS: TAMSULOSIN HCL 0.4 MG CAP.SR.24H PO SCH (17:36)
[2020-10-23] MEDS: MELATONIN 3,000 MCG TABLET PO SCH (20:29)
[2020-10-23] MEDS ORDERED: INSULIN GLARGINE,HUM.REC.ANLOG 100 UNITS/ML VIAL SC SCH (21:00)
[2020-10-24] MEDS: BACLOFEN 10 MG TABLET PO PRN (05:44)
--- NOTE | 2020-10-24 06:33 | DS ---
(1) Encephalopathy acute Problem: Resolved (2) Drainage from surgical wound Problem: Acute (3) Diabetes mellitus Problem: Chronic Qualifiers: Diabetes mellitus type: type 2 Diabetes mellitus shelter insulin use: with manager terminal use Diabetes mellitus complication status: without complication Qualified Code(s): E11.9 - Type 2 diabetes mellitus without complications; Z79.4 - long term care administrator (current) use of insulin (4) Acute CHF Problem: Resolved Qualifiers: Heart failure type: systolic Qualified Code(s): I50.21 - Acute systolic (congestive) heart failure (5) Oxygen dependent Diagnosis(s): tried to taper supplemental oxygen and his O2 sats dropped into the 70s. will continue oxygen at the custodial. Problem: Chronic Date of Discharge:: 10/24/20 Hospital Course: Nathen is a 75 yo Caucausian male who presented by [facility] from [facility] on 10/18/20 for altered mental status. He recently had thoracic spinal fusion at the [facility]. I spoke with his neurosurgeon 2 days ago, so he is aware. He has a followup appt with neurosurgery at the [facility] on November 05. I requested records yesterday, but don't have them yet. He is stable. He is oriented. this morning, but when I woke him up he denied pain and was oriented, though sleepy. He is being discharged to [facility] for post surgical rehab. His discharge diagnoses are CHF with pulmonary edema, superficial drainage for his surgical wound and supplemental oxygen dependency. We tried to taper his nasal oxygen, but his O2 sats dropped into the 70s. we will discharge him with supplemental oxygen. He will not be on antibiotics at the custodial, because I think his diagnosis is more consistent with chf, not pneumonia, and the surgical wound problem is superficial. We need to avoid opiates if possible. Procedures Performed: none Results and Findings: Lab Pending Results 10/18/20 19:00: WBC 6.0, RBC 4.08 L, Hgb 11.9 L, Hct 40.8 L, MCV 100.0, MCH 29.2, MCHC 29.2 L, RDW 15.0 H, Plt Count 239, MPV 8.6, Immature Gran % (Auto) 0.50 H, Immature Gran # (Auto) 0.03, Neutrophils % 70.6, Lymphocytes % 15.3 L, Monocytes % 9.2 H, Eosinophils % 2.9, Basophils % 1.5 H, Nucleated RBC % 0.0, Neutrophils # 4.2, Lymphocytes # 0.91 L, Monocytes # 0.6, Eosinophils # 0.2, Absolute Basophils 0.1 10/18/20 19:00: ESR 36 H 10/18/20 19:00: PT 13.1 H, INR (Anticoag Therapy) 1.27 H, PTT ([place]) 31.3 10/18/20 19:00: Sodium 146 H, Plasma Sodium 146 H, Potassium 3.9, Chloride 104, Carbon Dioxide 38.2 H, Anion Gap 7.7, BUN 22, Creatinine 1.27, Est GFR (Non-Af Amer) 59 L, BUN/Creatinine Ratio 17.3, Random Glucose 77 D, Calcium 8.6, Calcium Adj for Albumin 9.2, Total Bilirubin 0.7, AST 24, ALT 19, Alkaline Phosphatase 237 H, Troponin I 0.024, B-Natriuretic Peptide 55794 H, Total Protein 6.9, Albumin 2.8 L 10/18/20 19:00: Lactic Acid, Venous 0.9 10/18/20 19:26: Urine Color Yellow, Urine Appearance Clear, Urine pH 6.0, Ur Specific [place] 1.015, Urine Protein Negative, Urine Glucose (UA) 500 H, Urine Ketones Negative, Urine Blood 50 H, Urine Nitrate Negative, Urine Bilirubin Negative, Urine Urobilinogen Normal, Ur Leukocyte Esterase Negative, Urine RBC 10-25 H, Urine WBC None seen, Ur Epithelial Cells None seen, Urine Bacteria Trace, Hyaline Casts 0-5 H, Urine Culture Comments No culture indicated 10/18/20 19:53: pCO2 74.0 H*, pO2 96.0, HCO3 36.0 H, Total CO2 38.3 H, Base Excess 7.2 H, ABG pH 7.31 L, ABG O2 Sat (Measured) 96.4 10/18/20 20:00: SARS-CoV-2 (PCR) Not detected 10/18/20 21:49: pCO2 43.0, pO2 106.5, HCO3 33.2 H, Total CO2 34.6 H, Base Excess 9.2 H, ABG pH 7.51 H, ABG O2 Sat (Measured) 98.2 H 10/20/20 06:45: WBC 6.4, RBC 4.12 L, Hgb 11.8 L, Hct 40.4 L, MCV 98.1, MCH 28.6, MCHC 29.2 L, RDW 15.0 H, Plt Count 236, MPV 8.5, Immature Gran % (Auto) 0.30, Immature Gran # (Auto) 0.02, Neutrophils % 66.7, Lymphocytes % 14.6 L, Monocytes % 10.2 H, Eosinophils % 6.8 H, Basophils % 1.4 H, Nucleated RBC % 0.0, Neutrophils # 4.3, Lymphocytes # 0.93 L, Monocytes # 0.7, Eosinophils # 0.4, A bsolute Basophils 0.1 10/20/20 06:45: Sodium 145 H, Plasma Sodium 146 H, Potassium 3.9, Chloride 103, Carbon Dioxide 38.6 H, Anion Gap 7.3, BUN 23, Creatinine 1.17, Est GFR (Non-Af Amer) 65, BUN/Creatinine Ratio 19.7, Random Glucose 143 H D, Calcium 8.5, Calcium Adj for Albumin 9.3, Total Bilirubin 0.6, AST 22, ALT 18 L, Alkaline Phosphatase 229 H, Total Protein 6.6, Albumin 2.6 L 10/22/20 06:27: WBC 6.1, RBC 3.96 L, Hgb 11.5 L, Hct 39.8 L, MCV 100.5 H, MCH 29.0, MCHC 28.9 L, RDW 15.0 H, Plt Count 215, MPV 8.8, Immature Gran % (Auto) 0.30, Immature Gran # (Auto) 0.02, Neutrophils % 64.6, Lymphocytes % 16.1 L, Monocytes % 11.0 H, Eosinophils % 6.7 H, Basophils % 1.3 H, Nucleated RBC % 0.0, Neutrophils # 3.9, Lymphocytes # 0.98 L, Monocytes # 0.7, Eosinophils # 0.4, Absolute Basophils 0.1 10/22/20 06:27: Sodium 146 H, Plasma Sodium 147 H, Potassium 3.9, Chloride 103, Carbon Dioxide 42.9 H, Anion Gap 4.0 L, BUN 18, Creatinine 1.12, Est GFR (Non-Af Amer) 68, BUN/Creatinine Ratio 16.1, Random Glucose 132 H, Calcium 8.7 Discharge Location: [facility] Disposition: SNF Condition: Good Level of Care: SNF Discharge Activity: Activity as tolerated - with help. PT consult for rehab Discharge Diet: Consistent carbs - add diabetic nutritional supplements tid Correction Therapy: Physical Therapy, Occupation Therapy Referrals: Jayy Campos MD [Primary Care Provider] - Additional Patient Instructions (free text): [facility] SNF, for PT and OT. continuous nasal supplemental oxygen 2 Liters per minute. dressing changes daily. thoracic support removed only when lieing down. fingerstick blood sugars achs. call if blood sugar less than 90 or more than 250. call for problems or questions. keep [facility] neurosurgery appt on November 05. see Dr. Osborne in the office November 02. Incentive Spirometry qid CBC, CMP 1 week call for problems or questions. Complete Home Medications List: Complete Home Medication List: Acetaminophen [Tylenol] 1,000 mg PO TID PRN #180 tab 10/24/20 Albuterol Sulfate [Albuterol Sulfate Hfa] 2 - 4 puff IH Q6H PRN #1 10/24/20 Amiodarone HCl 200 mg PO DAILY #30 tab 10/24/20 Apixaban [Eliquis] 5 mg PO BID #60 10/24/20 Aspirin [Aspirin Chewable] 81 mg PO DAILY #30 tab 10/24/20 Dapagliflozin Propanediol [Farxiga] 10 mg PO DAILY #30 10/24/20 Docusate Sodium 100 mg PO BID #60 10/24/20 Insulin Aspart [Novolog] 8 units SC TIDWM #1 vial 10/24/20 Insulin Glargine,Hum.rec.anlog [Lantus] 16 units SC HS #1 vial 10/24/20 Melatonin 3 mg PO HS #30 10/24/20 Metoprolol Succinate 25 mg PO DAILY #30 tab 10/24/20 Tamsulosin HCl 0.4 mg PO DAILY #30 10/24/20 Torsemide [Demadex] 60 mg PO DAILY #30 10/24/20 rOPINIRole HCL [Requip] 2 mg PO HS #30 tab 10/24/20 Forms: Patient Portal Registration
[2020-10-24] MEDS: ACETAMINOPHEN 500 MG TABLET PO PRN (06:58)
[2020-10-24] MEDS: INSULIN LISPRO 100 UNITS/ML VIAL SC SCH (06:59)
[2020-10-24] MEDS: LIDOCAINE 1 PATCH ADH..PATCH TP SCH (08:37)
[2020-10-24] MEDS: ASPIRIN 81 MG TAB.CHEW PO SCH (08:38)
[2020-10-24] MEDS: TORSEMIDE 20 MG TABLET PO SCH (08:38)
[2020-10-24] MEDS: AMIODARONE HCL 200 MG TABLET PO SCH (08:38)
[2020-10-24] MEDS: METOPROLOL SUCCINATE 25 MG TABLET.SA PO SCH (08:38)
[2020-10-24] MEDS: DOCUSATE SODIUM 100 MG CAPSULE PO SCH (08:38)
[2020-10-24] MEDS: rOPINIRole HCL 1 MG TABLET PO SCH (08:38)
[2020-10-24] MEDS: APIXABAN 5 MG TABLET PO SCH (08:39)
[2020-10-24 08:42] VITALS: BP 111/71
== END 2020-10-24 09:05 | DRG 91 ==
LOC: ER 18:51 → MS 22:00
PROVIDERS: ADMIT Family Medicine; ATTEND Allergy & Immunology
DX: T42.8X5A Adverse effect of antiparkinsonism drugs and other central muscle-tone depressants, initial encounter; E11.9 Type 2 diabetes mellitus without complications; E87.2 Acidosis; J96.02 Acute respiratory failure with hypercapnia; I48.91 Unspecified atrial fibrillation; Z79.4 Long term (current) use of insulin; R41.82 Altered mental status, unspecified; T40.2X5A Adverse effect of other opioids, initial encounter; I50.21 Acute systolic (congestive) heart failure; I35.0 Nonrheumatic aortic (valve) stenosis; I42.9 Cardiomyopathy, unspecified; G92 Toxic encephalopathy; J44.9 Chronic obstructive pulmonary disease, unspecified